=== PATIENT | male | born 1940 | race Caucasian/White ===

== ENCOUNTER 2017-01-07 13:42 | Emergency (ER) | payer MEDICARE, OTHER ==
--- NOTE | 2017-01-07 14:33 | EDM.PDOC ---
ED HPI GI/ABDOMINAL - General Chief Complaint: Abdominal Pain Stated Complaint: Lower abdominal pain Time Seen by Provider: 01/07/17 14:15 Source of Information: Reports: Patient, RN notes reviewed History Limitations: Reports: No limitations - History of Present Illness INITIAL COMMENTS - FREE TEXT/NARRATIVE: 76 year old male presents to the ED with two day history of lower abdominal pain. The pain is described as an intermittent cramping that worsens with laughing. He reports mild distention. He denies fever, chills, sweats, nausea, vomiting, diarrhea, constipation, bloody stools, black tarry stools. Last BM was two days ago. He had a colonoscopy in October and was told he has diverticuli. He also has a history of abdominal aortic aneurysm which is closely monitored and has remained stable. He reports frequency with urination and says he sometimes feels as though he doesn't fully empty his bladder. No burning with urination or difficulty starting stream. - Related Data Allergies/ADRs: Allergies Allergy/AdvReac Type Severity Reaction Status Date / Time No Known Allergies Allergy Verified 01/07/17 14:00 Home Meds: Home Meds Albuterol [Ventolin HFA] 2 puff INH QID 06/05/15 [History] Clopidogrel [Plavix] 75 mg PO DAILY 06/05/15 [History] Losartan [Cozaar] 100 mg PO DAILY 06/05/15 [History] Pravastatin [Pravachol] 20 mg PO DAILY 06/05/15 [History] Levofloxacin [Levaquin] 750 mg PO DAILY #7 tablet 01/07/17 [Rx] metroNIDAZOLE [Flagyl] 500 mg PO Q8H #21 tablet 01/07/17 [Rx] Past Medical History HEENT History: Reports: Cataract Cardiovascular History: Reports: CAD, High cholesterol, Hypertension, Stents Respiratory History: Reports: COPD Other Respiratory History: Uses inhaler, unknown reason, said per MD, give cammy more energy Gastrointestinal History: Reports: GERD - Past Surgical History GI Surgical History: Reports: Colonoscopy, Hernia repair/other Social & Family History - Tobacco Use Smoking Status *Q: Current Every Day Smoker Years of Tobacco use: 50 Packs/Tins Daily: 1 Used Tobacco, but Quit: No - Caffeine Use Caffeine Use: Reports: Coffee - Alcohol Use Days Per Week of Alcohol Use: 7 Number of Drinks Per Day: 2 Total Drinks Per Week: 14 - Recreational Drug Use Recreational Drug Use: No ED ROS GENERAL - Review of Systems Review Of Systems: See Below Constitutional: Reports: no symptoms. Denies: fever, chills, diaphoresis, decreased appetite Respiratory: Reports: No Symptoms. Denies: Shortness of Breath Cardiovascular: Reports: No symptoms. Denies: Chest pain GI/Abdominal: Reports: Abdominal pain, Distension. Denies: Black stool, Constipation, Diarrhea, Decreased appetite, Nausea, Vomiting : Reports: frequency. Denies: dysuria, flank pain ED EXAM, GI/ABD - Physical Exam Exam: See Below Exam Limited By: No limitations General Appearance: alert, WD/WN, no apparent distress Respiratory/Chest: no respiratory distress, lungs clear, normal breath sounds, no accessory muscle use, chest non-tender Cardiovascular: normal peripheral pulses, regular rate, rhythm, no murmur GI/Abdominal: normal bowel sounds, no organomegaly, no abnormal bruit, tenderness (mild tenderness with palpation to lower abdomen, no peritoneal inflammation signs. ), distention, mass (palpated to left lower quadrant ). No : guarding, rebound, rigidity Neurological: alert, oriented, normal cognition Skin Exam: Warm, Dry, Intact Course - Vital Signs Last Recorded V/S: Last Vital Signs Temp 97.9 F 01/07/17 14:00 Pulse 88 01/07/17 18:10 Resp 18 01/07/17 18:10 BP 174/84 H 01/07/17 18:10 Pulse Ox 96 01/07/17 18:10 - Orders/Labs/Meds Labs: Laboratory Tests 01/07/17 01/07/17 01/07/17 Range/Units 14:10 14:10 15:35 WBC 12.11 H (4.23-9.07) K/mm3 RBC 4.47 L (4.63-6.08) M/mm3 Hgb 14.9 (13.7-17.5) gm/L Hct 44.4 (40.1-51.0) % MCV 99.3 H (79.0-92.2) fl MCH 33.3 H (25.7-32.2) pg MCHC 33.6 (32.2-35.5) g/dl RDW Std Deviation 49.2 H (35.1-43.9) fL Plt Count 248 (163-337) K/mm3 MPV 9.5 (9.4-12.3) fl Neutrophils % (Manual) 80 H (40-60) % Band Neutrophils % 0 (0-10) % Lymphocytes % (Manual) 13 L (20-40) % Atypical Lymphs % 0 % Monocytes % (Manual) 6 (2-10) % Eosinophils % (Manual) 1 (0.8-7.0) % Basophils % (Manual) 0 L (0.2-1.2) Platelet Estimate Adequate Poikilocytosis 1+ slight Anisocytosis 1+ slight Macrocytosis 2+ moderate Ovalocytes 1+ slight RBC Morph Comment Not Reportable Sodium 139 (136-145) mEq/L Potassium 3.4 L (3.5-5.1) mEq/L Chloride 102 (98-107) mEq/L Carbon Dioxide 29 (21-32) mEq/L Anion Gap 11.4 (5-15) BUN 15 (7-18) mg/dL Creatinine 1.3 (0.7-1.3) mg/dL Est Cr Clr Drug Dosing 46.77 mL/min Estimated GFR (MDRD) 54 (>60) mL/min BUN/Creatinine Ratio 11.5 L (14-18) Glucose 134 H (83-115) mg/dL Calcium 8.8 (8.5-10.1) mg/dL Total Bilirubin 0.8 (0.2-1.0) mg/dL AST 11 L (15-37) U/L ALT 13 L (16-63) U/L Alkaline Phosphatase 78 (46-116) U/L Total Protein 7.2 (6.4-8.2) g/dl Albumin 3.5 (3.4-5.0) g/dl Globulin 3.7 gm/dL Albumin/Globulin Ratio 1.0 (1-2) Lipase 115 (73-393) U/L Urine Color Yellow (Yellow) Urine Appearance Clear (Clear) Urine pH 6.0 (5.0-8.0) Ur Specific [place] 1.025 (1.005-1.030) Urine Protein 1+ H (Negative) Urine Glucose (UA) Negative (Negative) Urine Ketones Trace H (Negative) Urine Occult Blood Negative (Negative) Urine Nitrite Negative (Negative) Urine Bilirubin 1+ H (Negative) Urine Urobilinogen 1.0 (0.2-1.0) Ur Leukocyte Esterase Negative (Negative) Urine RBC 0-5 (0-5) /hpf Urine WBC 5-10 H (0-5) /hpf Ur Epithelial Cells 0-5 (0-5) /hpf Urine Bacteria Few (FEW) /hpf Urine Mucus Moderate H (FEW) /hpf Meds: Medications Discontinued Medications Generic Name Dose Route Start Last Admin Trade Name Freq PRN Reason Stop Dose Admin Diatrizoate Meglum/Diatrizoate Sod 90 ml 01/07/17 16:28 01/07/17 16:48 Gastrografin 37% PO 01/07/17 16:29 90 ml ONETIME ONE Administration Iopamidol 100 ml 01/07/17 16:28 01/07/17 16:48 Isovue-370 (76%) IVPUSH 01/07/17 16:29 100 ml ONETIME ONE Administration Levofloxacin 750 mg 01/07/17 17:33 01/07/17 17:51 Levaquin PO 01/07/17 17:34 750 mg ONETIME ONE Administration Metronidazole 500 mg 01/07/17 17:33 01/07/17 17:51 Flagyl PO 01/07/17 17:34 500 mg ONETIME ONE Administration Sodium Chloride 10 ml 01/07/17 14:32 01/07/17 16:48 Saline Flush FLUSH 10 ml ASDIRECTED PRN Administration Keep Vein Open - Re-Assessments/Exams Free Text/Narrative Re-Assessment/Exam: CBC reveals mildly elevated WBC with no bands. CMP is normal. UA is negative for infection. Post-void residual was performed with bladder scan which revealed < 30ml in bladder after voiding. CT of abdomen/pelvis without contrast read by Dr. Adkins, impression: 1. Mild aneurysmal dilatation of the distal aorta measuring 3.2cm comparing to lumbar spine CT exam on 10/18/11 which measured 3.1cm. 2. Mild inflammatory change within the sigmoid colon which is felt compatible with diverticulosis. (findings most likely due to mild diverticulitis) 3. Mild atrophy of the lower left kidney 4. Other incidental findings. Patient and family were notified of diagnostic findings. Educated on diagnosis of diverticulitis, treatment plan, medications, and return precautions. Departure - Departure Time of Disposition: 17:33 Disposition: Home, Self-Care 01 Condition: good Clinical Impression: Diverticulitis Qualifiers: Diverticulitis site: large intestine Diverticulitis bleeding: without bleeding Diverticulitis complication: without perforation or abscess Qualified Code(s): K57.32 - Diverticulitis of large intestine without perforation or abscess without bleeding Prescriptions: Levofloxacin [Levaquin] 750 mg PO DAILY #7 tablet metroNIDAZOLE [Flagyl] 500 mg PO Q8H #21 tablet Instructions: Diverticulitis, [id number] Referrals: Brennon Bazzi MD [Primary Care Provider] - Forms: ED Department Discharge Additional Instructions: Drink plenty of fluids Flagyl 500mg every 8 hours. You were given first dose in the ER. Take for 7 days Levaquin 750mg once a day for 7 days, first dose given in the ER Return to ER with fever or worsening of symptoms Follow-up with Dr. Bazzi this week Percocet 1 tab every 4-6 hours as needed for pain No driving for at least 6-8 hours after taking Percocet.
[2017-01-07] MEDS: Sodium Chloride 0.9% 10 ML Syringe FLUSH PRN ×2 (15:40→16:48)
[2017-01-07] MEDS ORDERED: Iopamidol 755 Mg/ML 100 ML Bottle IVPUSH ONE (16:28)
[2017-01-07] MEDS ORDERED: Diatrizoate Meglumine/Diatrizoate Sodium 37% 120 ML Bottle PO ONE (16:28)
--- NOTE | 2017-01-07 17:18 | CT ---
CT abdomen and pelvis Technique: Multiple axial sections were obtained from above the dome of the diaphragm inferiorly through the pubic symphysis. Intravenous and oral contrast was utilized. Delayed images were also obtained through the bladder. Comparison: No previous abdominal CT is available. Lumbar spine study of 10/18/11 is available. Findings: Visualized lung bases shows nothing acute. Liver and spleen appear within normal limits. Gallbladder shows no calcified gallstones. Adrenal glands show no nodule. Several small lymph nodes are seen next to the adrenal gland which are felt to be within normal limits. Cortical thinning is seen within the lower left kidney. Kidneys are otherwise unremarkable. Pancreas appears within normal limits. Aorta shows aneurysmal dilatation distally measuring about 3.2 cm and previously measuring about 3.[address] cm on lumbar spine CT. Inflammatory change is seen around a portion of the sigmoid colon with mild diverticulosis being seen. Findings most likely due to mild diverticulitis. No pelvic abscess seen at this time. No additional pelvic abnormality is seen. Delayed images shows contrast within the distal ureters and within the bladder. Bone window settings were reviewed which shows scattered degenerative change within the spine. Impression: 1. Mild aneurysmal dilatation of the distal aorta measuring 3.2 cm comparing to lumbar spine CT exam of 10/18/11 which measured 3.1 cm. 2. Mild inflammatory change within the sigmoid colon which is felt compatible with mild diverticulosis. 3. Mild atrophy of the lower left kidney. 4. Other incidental findings as noted above. Diagnostic code #3
[2017-01-07] MEDS ORDERED: metroNIDAZOLE 500 MG Tab PO ONE (17:33)
[2017-01-07] MEDS ORDERED: Levofloxacin 750 MG Tab PO ONE (17:33)
[2017-01-07 18:14] VITALS: BP 174/84
== END 2017-01-07 18:10 | disposition home or self-care (01) ==
LOC: JD.ED 13:42
DX: K57.32 Diverticulitis of large intestine without perforation or abscess without bleeding (principal); I25.10 Atherosclerotic heart disease of native coronary artery without angina pectoris; I10 Essential (primary) hypertension; E78.00 Pure hypercholesterolemia, unspecified; Z95.5 Presence of coronary angioplasty implant and graft; K21.9 Gastro-esophageal reflux disease without esophagitis; F17.200 Nicotine dependence, unspecified, uncomplicated
CPT/HCPCS: 36415; 74177; 80053; 81001; 83690; 85025; 99284; A9270; J7050; Q9963; Q9967; 51798

== ENCOUNTER 2018-11-09 13:20 | Emergency (ER) | payer MEDICARE, OTHER ==
[2018-11-09 13:30] VITALS: BP 164/72
--- NOTE | 2018-11-09 13:51 | EDM.PDOC ---
ED HPI GENERAL MEDICAL PROBLEM - General Chief Complaint: Eye Problems Stated Complaint: RECENT VASCULAR SURGERY/LOSS OF VISION IN L EYE Time Seen by Provider: 11/09/18 13:33 Source of Information: Reports: Patient History Limitations: Reports: No Limitations - History of Present Illness INITIAL COMMENTS - FREE TEXT/NARRATIVE: Patient is a 78-year-old male presents ED complaining of left eye vision loss for approximately 30 seconds. Patient states this past he had a right- sided carotid endarterectomy and had no complications. He was discharged the following day and has been doing well since. Today while getting ready to take a nap states he saw stars and then his vision went away for approximately 30 seconds. Came back abruptly with no concerns. 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 His left carotid is between 45 and 50%. - Related Data Allergies Allergy/AdvReac Type Severity Reaction Status Date / Time No Known Allergies Allergy Verified 11/09/18 13:30 Home Meds: Home Meds Albuterol [Ventolin HFA] 2 puff INH QID 06/05/15 [History] Clopidogrel [Plavix] 75 mg PO DAILY 06/05/15 [History] Losartan [Cozaar] 100 mg PO DAILY 06/05/15 [History] Pravastatin [Pravachol] 20 mg PO DAILY 06/05/15 [History] Pantoprazole Sodium [Protonix] 40 mg PO DAILY 06/13/18 [History] Sucralfate 1 tab PO DAILY 11/09/18 [History] Past Medical History HEENT History: Reports: Cataract Cardiovascular History: Reports: Aneurysm, CAD, High Cholesterol, Hypertension, Stents Respiratory History: Reports: COPD Other Respiratory History: Uses inhaler, unknown reason, said per MD, give cammy more energy Gastrointestinal History: Reports: GERD - Past Surgical History Cardiovascular Surgical History: Reports: Other (See Below) Other Cardiovascular Surgeries/Procedures: carotid artery graft GI Surgical History: Reports: Colonoscopy, Hernia Repair/Other Social & Family History - Tobacco Use Smoking Status *Q: Current Every Day Smoker Years of Tobacco use: 60 Packs/Tins Daily: 0.5 - Caffeine Use Caffeine Use: Reports: Coffee - Recreational Drug Use Recreational Drug Use: No ED ROS GENERAL - Review of Systems Review Of Systems: ROS reveals no pertinent complaints other than HPI. ED EXAM GENERAL W FULL EYE - Physical Exam Exam: See Below Exam Limited By: No Limitations General Appearance: Alert, WD/WN, No Apparent Distress Eye Exam: Bilateral Eye: EOMI, Normal Inspection, Nystagmus (none ), PERRL, Vision Changes (none currently) Visual Acuity (R) 20/: 25 Visual Acuity (L) 20/: 20 With Correction: Yes Eyelids: Bilateral: Normal Appearance Conjunctiva & Sclera: Bilateral: Normal Appearance Extraocular Movements: Bilateral: Intact Pupillary Size: Bilateral: 4 mm Pupillary Reaction: Bilateral: Brisk Ears: Hearing Grossly Normal Nose: Normal Inspection Throat/Mouth: Normal Voice, No Airway Compromise Head: Atraumatic, Normocephalic Neck: Normal Inspection, Supple Respiratory/Chest: No Respiratory Distress, Lungs Clear, Normal Breath Sounds, No Accessory Muscle Use Cardiovascular: Normal Peripheral Pulses, Regular Rate, Rhythm, No Murmur ( obvious) Back Exam: Normal Inspection Extremities: Normal Inspection, Normal Range of Motion, Non-Tender Neurological: Alert, Oriented, CN II-XII Intact, Normal Cognition, No Motor/ Sensory Deficits, Other (No facial droop, no slurred speech, no tongue deviation. No pronator drift along with any weakness discrepancy is to the upper and lower extremities. Finger to nose and rapid alternating movements are intact.) Psychiatric: Normal Affect, Normal Mood Skin Exam: Warm, Dry, Intact, Normal Color Course - Vital Signs Last Recorded V/S: Last Vital Signs Temp 97.9 F 11/09/18 13:27 Pulse 92 11/09/18 13:27 Resp 16 11/09/18 13:27 BP 164/72 H 11/09/18 13:27 Pulse Ox 98 11/09/18 13:27 - Re-Assessments/Exams Free Text/Narrative Re-Assessment/Exam: [address] Basilio. He is not concerned with recent history. Suggested starting patient on plavix this evening. Return to the E.D. if he should have any new or worsening symptoms. CT of the head impression: Atrophy with greater central component. Other senescent change. Findings are similar to previous exam. No acute intracranial abnormalities appreciated. Patients vital signs have been stable. Last BP 147/72. He has had no further vision changes and or focal neurologic deficits. I have discussed the plan by Dr. Basilio to the patient. Return precautions discussed with the patient. Patient had no further questions or concerns. Discharge instructions as documented. Departure - Departure Time of Disposition: 14:53 Disposition: Home, Self-Care 01 Condition: Good Clinical Impression: Episode of visual loss of left eye - Discharge Information Instructions: Visual Disturbances Referrals: Brennon Bazzi MD [Primary Care Provider] - Forms: ED Department Discharge Additional Instructions: As directed by Dr. Basilio. Start taking the Plavix as directed this evening. Please follow up with PCP this coming week as needed. If you should experience any new focal neurological deficits or vision loss please return back to the ED for further examination. Follow-up with Dr. John as scheduled.
--- NOTE | 2018-11-09 14:33 | CT ---
Head CT Technique: Multiple axial sections through the brain were obtained. Intravenous contrast was not utilized. Comparison: Prior head CT study of 08/27/15. Findings: Ventricles are dilated. Sulci over the convexities are prominent. These findings are similar to previous exam. Old lacunar infarcts are noted within the basal ganglia. Slight diminished density is noted within the periventricular and subcortical white matter compatible with small vessel ischemic demyelination change. No other abnormal parenchymal densities are seen. No evidence of intracranial hemorrhage. No midline shift or mass effect is seen. Bone window setting shows no acute calvarial abnormality. Visualized sinuses are clear. Impression: 1. Atrophy with greater central component. Other senescent change. Findings are similar to previous exam. 2. No acute intracranial abnormality is appreciated. Diagnostic code #2
== END 2018-11-09 15:00 | disposition home or self-care (01) ==
LOC: JD.ED 13:20
DX: H54.62 Unqualified visual loss, left eye, normal vision right eye (principal); F17.210 Nicotine dependence, cigarettes, uncomplicated; I10 Essential (primary) hypertension; E78.00 Pure hypercholesterolemia, unspecified; J44.9 Chronic obstructive pulmonary disease, unspecified; K21.9 Gastro-esophageal reflux disease without esophagitis; Z79.899 Other long term (current) drug therapy
CPT/HCPCS: 70450; 70450-26; 99282; 99284-25

== ENCOUNTER 2019-02-26 09:38 | Emergency (ER) | payer MEDICARE, OTHER ==
--- NOTE | 2019-02-26 09:53 | EDM.PDOC ---
ED HPI GENERAL MEDICAL PROBLEM - General Chief Complaint: Neuro Symptoms/Deficits Stated Complaint: POSSIBLE STROKE Time Seen by Provider: 02/26/19 09:44 Source of Information: Reports: Patient, Family (eife) History Limitations: Reports: No Limitations - History of Present Illness INITIAL COMMENTS - FREE TEXT/NARRATIVE: 78-year-old male presents to the ED with acute weakness in his right lower extremity. He states that he woke around 0400 hrs. this morning and recognize that his right leg was not right. He states with felt funny and weak. He did not try to get out of bed however until this morning. When he tried to get up he had to have his help him up out of bed. He does identify that his right leg was very weak and he was unable to hardly lift it off the floor due to heaviness. He is walking with a very shuffling gait. He did not fall this morning. His held onto him. Of importance is that he did have a lumbar puncture done yesterday in [place]. The reason for this is unclear. As had previous strokes having had right carotid endarterectomy and a left carotid stent placed about 3 months ago. He is therefore on Plavix 75 mg daily which was held for 1 week prior to the LP being done yesterday. He states he is able to void normally. He had no weakness in his upper extremity or face and no change in his speech. Therefore the possibility of an epidural hematoma exists Onset: Today Onset Date: 02/26/19 Onset Time: 04:00 (Appreciated weakness in his right leg or abnormality in his right leg about 0400 hrs. this morning.) Duration: Hour(s): Location: Reports: Lower Extremity, Right (Weakness and inability to walk efficiently without help.) Quality: Reports: Other (No pain in the right lower extremity) Severity: Severe Improves with: Reports: None Worsens with: Reports: None Context: Reports: Other (Coincidental lumbar puncture done yesterday in [place]. Plavix was held for 1 week prior to the procedure). Denies: Activity , Exercise, Lifting, Sick Contact, Trauma Associated Symptoms: Reports: Cough, Malaise, Shortness of Breath, Weakness ( Right leg). Denies: Confusion, Chest Pain, cough w sputum (Chronically), Diaphoresis, Fever/Chills, Headaches, Loss of Appetite, Nausea/Vomiting, Rash, Seizure, Syncope (Chronic) Treatments SET BUILDER: Reports: Other (see below) (Did not take any of his normal meds this morning) - Related Data Allergies Allergy/AdvReac Type Severity Reaction Status Date / Time No Known Allergies Allergy Verified 02/26/19 10:40 Home Meds: Home Meds Albuterol [Ventolin HFA] 2 puff INH QID 06/05/15 [History] Clopidogrel [Plavix] 75 mg PO DAILY 06/05/15 [History] Losartan [Cozaar] 100 mg PO DAILY 06/05/15 [History] Pravastatin [Pravachol] 20 mg PO DAILY 06/05/15 [History] Pantoprazole Sodium [Protonix] 40 mg PO DAILY 06/13/18 [History] Sucralfate 1 tab PO DAILY 11/09/18 [History] Past Medical History HEENT History: Reports: Cataract Cardiovascular History: Reports: Aneurysm, CAD, High Cholesterol, Hypertension, Stents Respiratory History: Reports: COPD Other Respiratory History: Uses inhaler, unknown reason, said per MD, give cammy more energy Gastrointestinal History: Reports: GERD - Past Surgical History Cardiovascular Surgical History: Reports: Carotid Endarterectomy (Right carotid endarterectomy approximately 3 and half months ago.), Carotid Stents (Left carotid stent approximately 3 months ago), Vascular Surgery (Apparently has stents in both femoral arteries for peripheral vascular disease.), Other (See Below) Other Cardiovascular Surgeries/Procedures: carotid artery graft GI Surgical History: Reports: Colonoscopy, Hernia Repair/Other Social & Family History - Tobacco Use Smoking Status *Q: Current Every Day Smoker Tobacco Use Within Last Twelve Months: Cigarettes (1 pack per day) - Caffeine Use Caffeine Use: Reports: Coffee - Living Situation & Occupation Living situation: Reports: Occupation: Retired ED ROS GENERAL - Review of Systems Review Of Systems: See Below Constitutional: Reports: Weakness, Decreased Appetite. Denies: Fever, Chills, Malaise, Fatigue (Right lower extremity), Weight Loss HEENT: Denies: Glasses Respiratory: Reports: Shortness of Breath. Denies: Wheezing, Pleuritic Chest Pain, Cough Cardiovascular: Reports: Blood Pressure Problem, Dyspnea on Exertion ( Chronically). Denies: Chest Pain, Claudication, Lightheadedness, Orthopnea, Syncope Endocrine: Reports: No Symptoms GI/Abdominal: Reports: Constipation : Reports: Frequency, Other (Nocturia once or twice. ) Skin: Reports: Bruising (Bruises easily since he is on Plavix.) Neurological: Reports: Difficulty Walking (Right lower extremity), Weakness, Gait Disturbance. Denies: Confusion, Dizziness, Headache, Numbness, Syncope, Tingling, Tremors, Trouble Speaking ( unable to walk on his own this morning.), Change in Speech Psychiatric: Reports: No Symptoms Hematologic/Lymphatic: Reports: No Symptoms Immunologic: Reports: No Symptoms ED EXAM, NEURO - Physical Exam Exam: See Below Exam Limited By: No Limitations General Appearance: No Apparent Distress Eye Exam: Bilateral Eye: Normal Inspection, PERRL Throat/Mouth: Normal Inspection, Normal Lips, Normal Teeth, Normal Oropharynx, Other (Uvula is in the midline.) Head Exam: Atraumatic, Normocephalic. No: Facial Swelling, Facial Tenderness Neck: Other (He said previous right carotid endarterectomy with well-healed scar. Set a stent placed in his left carotid artery. Apparently this was done 3 months ago). No: Carotid Bruit, Lymphadenopathy (L), Lymphadenopathy (R) Respiratory/Chest: Decreased Breath Sounds (Decreased air entry to the lower 20 % of lung gabriel bilaterally with occasional expiratory wheeze.) Cardiovascular: Regular Rate, Rhythm, No Edema, No Gallop, No Murmur, No Rub, Other (Pulses to right foot are palpable and graded as 2 out of 4.). No: Normal Peripheral Pulses GI/Abdominal: Normal Bowel Sounds, Soft, Non-Tender, No Organomegaly, No Mass, Pelvis Stable, Rebound (Male) Exam: Cremasteric Reflex (Intact) Rectal (Males) Exam: Normal Rectal Tone Neurological: Alert, Normal Mood/Affect, Normal Dorsiflexion, CN II-XII Intact, Normal Plantar Flexion, Normal Reflexes, Oriented x 3, Difficulty Walking ( Shuffling gait due to right leg weakness.). No: Normal Gait (Shuffling gait due to his severe weakness right lower extremity.) DTR: 1+: Achilles (R), Achilles (L), 2+: Bicep (R), Bicep (L), Patella (R), Patella (L) Back Exam: Normal Inspection, Full Range of Motion. No: CVA Tenderness (L), CVA Tenderness (R) Extremities: Normal Inspection, Other (He can lift the right leg off the gurney and hold it for 5 seconds) Psychiatric: Normal Affect ( against gravity on his own volition.), Normal Mood Skin Exam: Warm, Dry, Intact, Normal Color, No Rash EKG INTERPRETATION EKG Date: 02/26/19 Time: 10:01 Rhythm: NSR Rate (Beats/Min): 68 Burton: Normal P-Wave: Present (Borderline short HI interval.) QRS: Other (Early R-wave transition consider right ventricular hypertrophy work versus septal hypertrophy pattern. Also evidence of left ventricular hypertrophy.) ST-T: Normal QT: Normal EKG Interpretation Comments: Abnormal ECG Course - Vital Signs Last Recorded V/S: Last Vital Signs Temp 36.2 C 02/26/19 09:38 Pulse 73 02/26/19 09:38 Resp 16 02/26/19 09:38 BP 146/84 H 02/26/19 09:38 Pulse Ox 95 02/26/19 09:38 - Orders/Labs/Meds Orders: Active Orders 24 hr Category Date Time Status EKG Documentation Completion [RC] STAT Care 02/26/19 09:50 Active PRO B-TYPE NATRIUR PEPT,BNPPRO [CHEM] Stat Lab 02/26/19 09:45 Received Labs: Laboratory Tests 02/26/19 02/26/19 02/26/19 Range/Units 09:45 09:45 09:45 WBC 6.96 (4.23-9.07) K/mm3 RBC 4.49 L (4.63-6.08) M/mm3 Hgb 13.5 L (13.7-17.5) gm/L Hct 42.3 (40.1-51.0) % MCV 94.2 H D (79.0-92.2) fl MCH 30.1 (25.7-32.2) pg MCHC 31.9 L (32.2-35.5) g/dl RDW Std Deviation 47.5 H (35.1-43.9) fL Plt Count 278 (163-337) K/mm3 MPV 8.9 L (9.4-12.3) fl Neutrophils % (Manual) 69 H (40-60) % Band Neutrophils % 0 (0-10) % Lymphocytes % (Manual) 20 (20-40) % Atypical Lymphs % 0 % Monocytes % (Manual) 9 (2-10) % Eosinophils % (Manual) 2 (0.8-7.0) % Basophils % (Manual) 0 L (0.2-1.2) Platelet Estimate Adequate RBC Morph Comment Normal PT 11.1 (9.5-12.1) SECONDS INR 1.02 APTT 27 (24-31) SECONDS Sodium 139 (136-145) mEq/L Potassium 4.1 (3.5-5.1) mEq/L Chloride 104 (98-107) mEq/L Carbon Dioxide 24 (21-32) mEq/L Anion Gap 15.1 H (5-15) BUN 19 H (7-18) mg/dL Creatinine 1.3 (0.7-1.3) mg/dL Est Cr Clr Drug Dosing 45.31 mL/min Estimated GFR (MDRD) 53 (>60) mL/min BUN/Creatinine Ratio 14.6 (14-18) Glucose 104 (83-115) mg/dL Calcium 9.0 (8.5-10.1) mg/dL Magnesium 2.0 (1.8-2.4) mg/dl Total Bilirubin 0.4 (0.2-1.0) mg/dL AST 15 (15-37) U/L ALT 16 (16-63) U/L Alkaline Phosphatase 73 (46-116) U/L Total Protein 7.1 (6.4-8.2) g/dl Albumin 3.4 (3.4-5.0) g/dl Globulin 3.7 gm/dL Albumin/Globulin Ratio 0.9 L (1-2) Meds: Medications Discontinued Medications Generic Name Dose Route Start Last Admin Trade Name Freq PRN Reason Stop Dose Admin Aspirin 81 mg 02/26/19 10:34 02/26/19 10:49 Aspirin PO 02/26/19 10:35 81 mg ONETIME ONE Administration - Radiology Interpretation Free Text/Narrative:: 70-year-old male attends the ED after wakening this morning and finding that his right leg was not working right. Has to walk with a shuffling gait and requires his to assist his gait which is revealing very weak right lower extremity. He is unable to lift his foot off the floor essentially and has to shuffle. He has no pain in his right lower extremity. Patient has a history of TIAs. He had a right carotid endarterectomy performed by Dr. John about 3 and half months ago. 2 weeks later he had a stent placed in his left carotid artery. He is being worked up for benign intracranial hypertension and was taken off his Plavix over the last week and had lumbar puncture done yesterday with removal of some cerebral spinal fluid with a marked improvement in his gait. For there was some consideration being given to providing a ventriculoperitoneal shunt. Unfortunately the patient awoke around 0400 hrs. this morning identifying that his right leg did not feel right. He did not try and get out of bed until this morning when he identified that the right leg was very weak and he was unable to walk on his own volition. He required his 's help to get up from bed. Medically he has grade 3 out of 5 motor power and tone in the right extremity. When he is lying he is able to hold for 5 seconds above gravity on his own. Only the right leg seems to be affected. Plan he will have CT of his head carried out and CT of his lumbar spine to rule out a epidural hematoma although clinically this does not appear to be evident as he has good sphincter tone and normal cremasteric reflexes. He has good pulses to his right foot as well. - Re-Assessments/Exams Free Text/Narrative Re-Assessment/Exam: 02/26/19 10:41 spoke with --neurolgist at [facility] in [facility] and discussed the patient's findings. He is relatively contraindicated for him to receive thrombolytics due to recent lumbar puncture and also he is outside the 3-1/2-4 window benefit of thrombolytics. He recommends that we start the patient on baby aspirin 81 mg at this time without resumption of Plavix. I then spoke with --hospitalist who has accepted care of the patient. Patient be transferred to facility per ground ambulance. 02/26/19 10:56 Labs reveal a normal white count at 6.96. Differential shows 69% neutrophils no bands cells. Hemoglobin is 13.5 with hematocrit of 42.3. Bili count is 278,000. PT is 11.1 with an INR of 1.02. PTT is 27. Sodium 139 with a potassium of 4.1. Chloride is 104 with a bicarbonate 24. And a gap is 15.1. BUN is 19. Creatinine is 1.3. Estimated GFR is 53. Glucose 104. Calcium 9.0. Magnesium is 2.0. Liver function is normal. Departure - Departure Time of Disposition: 10:56 Disposition: DC/Tfer to Acute Hospital 02 Condition: Fair Clinical Impression: Cerebrovascular accident (CVA) determined by clinical assessment, Benign intracranial hypertension Cerebrovascular accident (CVA) Qualifiers: CVA mechanism: thrombosis Precerebral and cerebral artery: middle cerebral artery Laterality of affected vessel: left Qualified Code(s): I63.312 - Cerebral infarction due to thrombosis of left middle cerebral artery - Discharge Information *PRESCRIPTION DRUG MONITORING PROGRAM REVIEWED*: Not Applicable *COPY OF PRESCRIPTION DRUG MONITORING REPORT IN PATIENT IVV: Not Applicable Referrals: Brennon Bazzi MD [Primary Care Provider] - Forms: ED Department Discharge Additional Instructions: 78-year-old male presents the ED with acute right lower extremity paresis. He states he awoke around 0400 hrs. from sleep and appreciated abnormality in his right leg which she has difficulty describing. It didn't hurt but he felt it wasn't quite right. He did not get up from bed then. When he tried to get out of bed this morning he could not without the aid of his . Etiology identified when he stood up that he could not walk without the use of his due to right leg weakness. Examination the department shows no dysarthria or facial weakness. He has no right upper extremity weakness either. Of note patient has a left carotid artery stent in place for about 3 months. He's been on Plavix up until a week ago when it was curtailed to perform lumbar puncture yesterday in [place]. He has not yet been restarted. Do not take any of his normal medicines this morning. CT of the brain was carried out and reveals dilated lateral ventricles and CT suggestion of a benign intracranial hypertension. Is diffuse small vessel ischemic changes noted in both basal ganglia. No intracranial hypertension appreciated. Because of his recent lumbar puncture CT of his lumbar spine was done as well and no epidural hematoma identified. 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 Family is requesting to go back to [place]. I did speak with the neurologist rn care transition any suggest starting him back on aspirin 81 mg at this time. Patient is to be admitted under the hospitalist care doctor Caleb. He'll be transferred to [facility] per ground ambulance. CT of the brain and the lumbar spine have been sent by PACs. - My Orders Last 24 Hours: My Active Orders 02/26/19 09:45 PRO B-TYPE NATRIUR PEPT,BNPPRO [CHEM] Stat 02/26/19 09:50 EKG Documentation Completion [RC] STAT - Assessment/Plan Last 24 Hours: My Active Orders 02/26/19 09:45 PRO B-TYPE NATRIUR PEPT,BNPPRO [CHEM] Stat 02/26/19 09:50 EKG Documentation Completion [RC] STAT
[2019-02-26] MEDS ORDERED: Aspirin 81 MG Tab.Chew PO ONE (10:34)
--- NOTE | 2019-02-26 10:36 | CT ---
Head CT Technique: Multiple axial sections through the brain were obtained. Intravenous contrast was not utilized. Comparison: Prior MRI brain of 01/21/19 and prior noncontrast head CT study of 11/09/18. Findings: Ventricles are dilated out of proportion when compared to the sulci over the convexities. This finding is felt compatible with greater central atrophy and is stable from prior studies. Old lacunar infarcts are noted within the basal ganglia on both sides. Mild diminished density is noted within the periventricular white matter compatible with small vessel ischemic demyelination change. No other abnormal parenchymal densities are seen. No evidence of intracranial hemorrhage. No midline shift or mass effect is seen. Bone window settings were reviewed which show no acute calvarial abnormality. There is mild mucosal thickening seen within the right sphenoid sinus which is felt to be incidental. Impression: 1. Nothing acute is appreciated on noncontrast head CT study. 2. Minimal sinus findings which are believed to be incidental. 3. Stable senescent change. Diagnostic code #2
--- NOTE | 2019-02-26 10:36 | CT ---
CT lumbar spine Technique: Multiple axial sections were obtained from the lower T11 level inferiorly through the L5-S1 disc. Reconstructed sagittal and coronal images were reviewed. Diffuse anterior and lateral osteophytes are seen throughout the spine. Vertebral body heights are maintained. No fracture is seen. Degenerative change is noted within the apophyseal joints throughout the lumbar spine. Minimal circumferential disc bulge is noted at L3-L4 with posterior disc maintaining concave margin. Mild central canal stenosis is seen. Mild bilateral neural foraminal stenosis also noted at L3-L4. L4-L5 level shows mild circumferential disc bulge. Mild bilateral neural foraminal stenosis is seen worse on the left side. Minimal central canal stenosis is noted. Mild bilateral neural foraminal stenosis noted at L5-S1. No central canal stenosis is seen. No evidence of epidural hematoma. Partially visualized distal abdominal aortic aneurysm is seen. AP dimension cannot be measured but transverse measurement is 3.7 cm. Impression: 1. Degenerative change as noted above. No epidural hematoma seen. 2. Abdominal aortic aneurysm is incompletely seen, maximum transverse measurement is 3.7 cm. Diagnostic code #3
[2019-02-26 10:45] VITALS: BP 146/84
== END 2019-02-26 11:18 ==
LOC: JD.ED 09:38
DX: I63.312 Cerebral infarction due to thrombosis of left middle cerebral artery (principal); G93.2 Benign intracranial hypertension; I25.10 Atherosclerotic heart disease of native coronary artery without angina pectoris; E78.00 Pure hypercholesterolemia, unspecified; I10 Essential (primary) hypertension; J44.9 Chronic obstructive pulmonary disease, unspecified; K21.9 Gastro-esophageal reflux disease without esophagitis; F17.210 Nicotine dependence, cigarettes, uncomplicated; Z79.899 Other long term (current) drug therapy; Z95.5 Presence of coronary angioplasty implant and graft; Z79.01 Long term (current) use of anticoagulants; R29.701 NIHSS score 1
CPT/HCPCS: 36415; 70450; 72131; 80053; 82962; 83735; 83880; 85007; 85027; 85610; 85730; 93005; 99285; A9270; 93010

== ENCOUNTER 2019-06-17 07:05 | Day surgery (SDC) | payer MEDICARE, OTHER ==
[~2019-06-17 07:05] MED LIST: Albuterol 0.083% 2.5 MG/3 ML Neb Soln NEB SCH; Lactated Ringers 1,000 ML IV SCH; Lidocaine 1%/Sod Bicarbonate in NS 8.4% 1 ML Syringe IDERM PRN; Sodium Chloride 0.9% 10 ML Syringe FLUSH PRN
[2019-06-17] MEDS ORDERED: Propofol 200 MG/20 ML SDV ONE (07:22)
[2019-06-17] MEDS ORDERED: Ketamine 500 mg/10 ML MDV ONE (07:22)
[2019-06-17] MEDS ORDERED: Lidocaine 1% 4 ML ONE (07:23)
--- NOTE | 2019-06-17 07:27 | PCM.PREANE ---
Preanesthetic Assessment - Procedure Proposed Procedure: EGD/colonoscopy - Anesthesia/Transfusion/Family Hx Anesthesia History: No Prior Anesthesia Family History of Anesthesia Reaction: No Transfusion History: No Prior Transfusion(s) Intubation History: Unknown - Review of Systems General: No Symptoms Pulmonary: No Symptoms Cardiovascular: No Symptoms Gastrointestinal: No Symptoms Neurological: Weakness, Other (cva -2 months ago weakness in legs ) Other: Reports: Easy Bleeding - Physical Assessment NPO Status Date: 06/17/19 NPO Status Time: 21:00 Height: 1.7 m ASA Class: 4 Mental Status: Alert & Oriented x3 Airway Class: Mallampati = 3 Dentition: Reports: Dentures (upper ) Thyro-Mental Finger Breadths: 3 Mouth Opening Finger Breadths: 4 ROM/Head Extension: Full Lungs: Clear to Auscultation, Normal Respiratory Effort Cardiovascular: Regular Rate, Regular Rhythm - Allergies Allergies/Adverse Reactions: Allergies Allergy/AdvReac Type Severity Reaction Status Date / Time No Known Allergies Allergy Verified 06/16/19 17:09 - Blood Blood Available: No - Acknowledgements Anesthesia Type Planned: MAC Pt an Appropriate Candidate for the Planned Anesthesia: Yes Alternatives and Risks of Anesthesia Discussed w Pt/Guardian: Yes Pt/Guardian Understands and Agrees with Anesthesia Plan: Yes PreAnesthesia Questionnaire HEENT History: Reports: Cataract, Impaired Vision, Other (See Below) Other HEENT History: wears glasses, has dentures Cardiovascular History: Reports: Aneurysm, CAD, High Cholesterol, Hypertension, Stents, Other (See Below) Other Cardiovascular History: carotid stenosis, peripheral vascular disease, carotid stent, right carotid endarterectomy Respiratory History: Reports: COPD Other Respiratory History: Uses inhaler, unknown reason, said per MD, give cammy more energy Gastrointestinal History: Reports: Diverticulosis, GERD, Hiatal Hernia Genitourinary History: Reports: None TILE INSPECTOR History: Reports: None Musculoskeletal History: Reports: None Neurological History: Reports: CVA Psychiatric History: Reports: None Endocrine/Metabolic History: Reports: None Hematologic History: Reports: None Immunologic History: Reports: None Oncologic (Cancer) History: Reports: Basal Cell Carcinoma Dermatologic History: Reports: None - Past Surgical History Head Surgeries/Procedures: Reports: None Cardiovascular Surgical History: Reports: Carotid Endarterectomy, Carotid Stents , Vascular Surgery, Other (See Below) Other Cardiovascular Surgeries/Procedures: carotid artery graft Respiratory Surgical History: Reports: None GI Surgical History: Reports: Colonoscopy, EGD, Hernia Repair/Other Female Surgical History: Reports: None Male Surgical History: Reports: None Endocrine Surgical History: Reports: None Neurological Surgical History: Reports: None Musculoskeletal Surgical History: Reports: Other (See Below) Other Musculoskeletal Surgeries/Procedures:: bilateral dupytren's contracture release Oncologic Surgical History: Reports: None Dermatological Surgical History: Reports: None - SUBSTANCE USE Smoking Status *Q: Current Every Day Smoker Recreational Drug Use History: No - HOME MEDS Home Medications: Home Meds Albuterol [Ventolin HFA] 2 puff INH Q6H PRN 06/05/15 [History] Clopidogrel [Plavix] 75 mg PO DAILY 06/05/15 [History] Pantoprazole Sodium [Protonix] 40 mg PO DAILY 06/13/18 [History] Sucralfate 1 tab PO QID 11/09/18 [History] Acetaminophen/oxyCODONE [Percocet 325-5 MG] 1 - 2 tab PO Q4H 06/16/19 [History] Aspirin [Adult Low Dose Aspirin EC] 81 mg PO DAILY 06/16/19 [History] Cyanocobalamin (Vitamin B-12) [Vitamin B-12] 1,000 mcg SQ Q30D 06/16/19 [History ] Losartan Potassium [Cozaar] 50 mg PO DAILY 06/16/19 [History] - CURRENT (IN HOUSE) MEDS Current Meds: Current Medications Albuterol (Proventil Neb Soln) 2.5 mg NEB ONETIME NALDO Stop: 06/17/19 14:00 Lactated Ringer's (Ringers, Lactated) 1,000 mls @ 125 mls/hr IV ASDIRECTED NALDO Stop: 06/17/19 23:00 Lidocaine/Sodium Bicarbonate (Buffered Lidocaine 1% In Ns 8.4%) 0.25 ml IDERM ONETIME PRN PRN Reason: Prior to IV Start Stop: 06/17/19 18:00 Sodium Chloride (Saline Flush) 10 ml FLUSH ASDIRECTED PRN PRN Reason: Keep Vein Open Stop: 06/17/19 18:00
[2019-06-17] MEDS ORDERED: Albuterol 0.021% 0.63 MG/3 ML Neb Soln NEB ONE (07:50)
[2019-06-17] MEDS ORDERED: Phenylephrine/Normal Saline 100 MCG/ML 10 ML Syringe ONE (08:28)
--- NOTE | 2019-06-17 08:56 | PCM.OPNOTE ---
- General Post-Op/Procedure Note Date of Surgery/Procedure: 06/17/19 Operative Procedure(s): EGD/colonoscopy with biopsy Pre Op Diagnosis: anemia. guaiac +stools Post-Op Diagnosis: Same Anesthesia Technique: MAC Primary Surgeon: Jorge Sinha EBL in mLs: 0 Complications: None Condition: Good
--- NOTE | 2019-06-17 08:58 | PCM48HPAN ---
Post Anesthesia Note - EVALUATION WITHIN 48HRS OF ANESTHETIC Vital Signs in Normal Range: Yes Patient Participated in Evaluation: Yes Respiratory Function Stable: Yes Airway Patent: Yes Cardiovascular Function Stable: Yes Hydration Status Stable: Yes Pain Control Satisfactory: Yes Nausea and Vomiting Control Satisfactory: Yes Mental Status Recovered: Yes Vital Signs: Last Vital Signs Temp 36.8 C 06/17/19 07:15 Pulse 77 06/17/19 07:15 Resp 16 06/17/19 07:15 BP 126/64 06/17/19 07:15 Pulse Ox 99 06/17/19 07:59 0853 96/58, 94- 2L, 78, 15, 97.8
[2019-06-17 10:01] VITALS: BP 137/65; PULSE 64
--- NOTE | 2019-06-18 08:25 | OR ---
DATE OF OPERATION: 06/17/2019 SURGEON: Jorge Sinha MD PREOPERATIVE DIAGNOSIS: Guaiac-positive stools. POSTOPERATIVE DIAGNOSIS: Guaiac-positive stools. OPERATION PERFORMED: Colonoscopy to cecum with biopsy of the lesion in the rectum done under IV sedation. FINDINGS: Occasional diverticula in the sigmoid colon. A sessile polyp at 15 cm in the rectum which was about 2 cm and was villous in nature. Biopsy was taken of this. There was no angiodysplasias, large ulcerations or inflammation of the colon. DESCRIPTION OF PROCEDURE: The patient was taken to the operating room having been connected to monitoring equipment and given IV sedation. Upper GI was done and IV sedation continued for colonoscopy. He was placed in left lateral position. Perianal area was inspected, it was normal. Rectal exam showed good sphincter tone. Video Olympus colonoscope was then introduced into the rectum and threaded up without problem to the cecum, where the appendicular orifice was noted along with the ileocecal valve. Prep was excellent. [place] cleansing score grade A, and the scope was slowly withdrawn showing the cecum, ascending colon, transverse colon, descending colon, sigmoid colon, and rectum. At 15 cm, a sessile polyp was noted and this was only biopsied because the patient was high risk for stroke and was not taken off his Plavix. A biopsy was done and the site coagulated that was biopsied and specimen sent to Pathology. The patient tolerated the procedure, sent to recovery room in a stable condition, and will be followed up in the clinic. ANESTHESIA: ESTIMATED BLOOD LOSS: MMODAL /[id number]
--- NOTE | 2019-06-18 08:25 | OR ---
DATE OF OPERATION: 06/17/2019 SURGEON: Jorge Sinha MD PREOPERATIVE DIAGNOSIS: Anemia. POSTOPERATIVE DIAGNOSIS: Anemia. OPERATION PERFORMED: Upper GI endoscopy. FINDINGS: There were no acute disease. The second portion of the duodenum and duodenal bulb were unremarkable. Pyloric channel was normal. The antrum showed loose erythematous streaking. The J-maneuver showed fundus and cardia and body of the stomach. No acute problem. GE junction showed some mild chronic esophagitis. The GE junction located at 40 cm. Did not notice a hiatal hernia. Rest of the esophagus was unremarkable. ANESTHESIA: Procedure was done under IV sedation. DESCRIPTION OF PROCEDURE: The patient was taken to the operating room, placed in the supine position, connected to monitoring equipment and given IV sedation. Bite block was inserted. A video Olympus gastroscope was placed in the posterior oropharynx under direct vision and threaded past the cricopharyngeus down the esophagus into the stomach. The stomach was insufflated, and the scope passed through the pylorus to the second portion of the duodenum. It was slowly withdrawn showing no acute pathology. Antrum was viewed. J-maneuver was performed showing the body, cardia, and fundus of the stomach. The above noted was found. The scope was withdrawn to the GE junction, which did not show any acute pathology other than chronic esophagitis. The rest of the esophagus was unremarkable. The patient tolerated the procedure, IV sedation and continued for colonoscopy. ESTIMATED BLOOD LOSS: MMODAL /[id number]
== END 2019-06-17 10:20 | disposition home or self-care (01) ==
LOC: JD.SDS 07:05
PROVIDERS: ATTEND Surgery
DX: K57.31 Diverticulosis of large intestine without perforation or abscess with bleeding (principal); D12.8 Benign neoplasm of rectum; K20.9 Esophagitis, unspecified; D64.9 Anemia, unspecified; I25.10 Atherosclerotic heart disease of native coronary artery without angina pectoris; I10 Essential (primary) hypertension; I73.9 Peripheral vascular disease, unspecified; I71.9 Aortic aneurysm of unspecified site, without rupture; E78.2 Mixed hyperlipidemia; J44.9 Chronic obstructive pulmonary disease, unspecified; F17.210 Nicotine dependence, cigarettes, uncomplicated; G91.9 Hydrocephalus, unspecified; Z95.5 Presence of coronary angioplasty implant and graft; Z86.010 Personal history of colon polyps; Z86.73 Personal history of transient ischemic attack (TIA), and cerebral infarction without residual deficits; Z79.02 Long term (current) use of antithrombotics/antiplatelets; Z79.82 Long term (current) use of aspirin; Z79.899 Other long term (current) drug therapy
CPT/HCPCS: 43235; 45380; 94640; J2001; J2370; J2704; J7120

== ENCOUNTER 2019-08-10 11:57 | Emergency (ER) | payer MEDICARE, OTHER ==
[2019-08-10] MEDS ORDERED: Ondansetron 4 MG/2 ML SDV IVPUSH ONE (12:25)
[2019-08-10] MEDS ORDERED: Sodium Chloride 0.9% 10 ML Syringe FLUSH PRN ×2 (12:26→13:19)
[2019-08-10] MEDS ORDERED: Sodium Chloride 0.9% 1,000 ML IV SCH (12:30)
--- NOTE | 2019-08-10 12:50 | EDM.PDOC ---
ED HPI GENERAL MEDICAL PROBLEM - General Chief Complaint: Abdominal Pain Stated Complaint: LOWER ABD PAIN Time Seen by Provider: 08/10/19 12:23 Source of Information: Reports: Patient, RN Notes Reviewed History Limitations: Reports: No Limitations - History of Present Illness INITIAL COMMENTS - FREE TEXT/NARRATIVE: Patient is a 79-year-old male who presents to the ED for the evaluation of bilateral lower abdominal pain. Patient notes this is been painful off and on for a while now, but for the last 4-5 days this has been more bothersome and painful. He notes that it is intermittent, and starts with being sharp and stabbing in nature, and told to an ache, then goes away. Patient notes he has been having issues with constipation for the past few weeks as well, he states that his last regular bowel movement was yesterday. He notes that he's been having to strain really hard to make his bowel movements, round. He notes that he does have a history of a abdominal aortic aneurysm, and states this was checked at one of his last visits, and seemed to be stable, but he notes it has not been checked in a while. He was wondering if due to his straining with bowel movements, that he could have hurt this or made the abdominal aortic aneurysm grow further. Patient denies any blood in the stool, any black stools coming any issues with urination, or his prostate, any fevers or chills, nausea or vomiting. He has not taken anything at home for [id number] pain medication. He notes that he did have a recent colonoscopy, and he did have a polyp removed near the proximal colon, and states he was told this was not cancerous or precancerous. He states his primary care provider is Dr. Bazzi. Bilateral Lower Abdomen Pain Score (Numeric/FACES): 7 - Related Data Allergies Allergy/AdvReac Type Severity Reaction Status Date / Time No Known Allergies Allergy Verified 08/10/19 12:11 Home Meds: Home Meds Albuterol [Ventolin HFA] 2 puff INH Q6H PRN 06/05/15 [History] Clopidogrel [Plavix] 75 mg PO DAILY 06/05/15 [History] Pantoprazole Sodium [Protonix] 40 mg PO DAILY 06/13/18 [History] Sucralfate 1 tab PO QID 11/09/18 [History] Losartan Potassium [Cozaar] 50 mg PO DAILY 06/16/19 [History] Amoxicillin/Clavulanate K [Augmentin 500-125 MG] 1 tab PO TID #21 tab 08/10/19 [ Rx] Past Medical History HEENT History: Reports: Cataract, Impaired Vision, Other (See Below) Other HEENT History: wears glasses, has dentures Cardiovascular History: Reports: Aneurysm, CAD, High Cholesterol, Hypertension, Stents, Other (See Below) Other Cardiovascular History: carotid stenosis, peripheral vascular disease, carotid stent, right carotid endarterectomy Respiratory History: Reports: None Other Respiratory History: Uses inhaler, unknown reason, said per MD, give cammy more energy Gastrointestinal History: Reports: Diverticulosis, GERD, Hiatal Hernia Genitourinary History: Reports: None [place] [employer] History: Reports: None Musculoskeletal History: Reports: None Neurological History: Reports: CVA Psychiatric History: Reports: None Endocrine/Metabolic History: Reports: None Hematologic History: Reports: None Immunologic History: Reports: None Oncologic (Cancer) History: Reports: Basal Cell Carcinoma Dermatologic History: Reports: None - Infectious Disease History Infectious Disease History: Reports: None - Past Surgical History Head Surgeries/Procedures: Reports: None Cardiovascular Surgical History: Reports: Carotid Endarterectomy, Carotid Stents , Vascular Surgery, Other (See Below) Other Cardiovascular Surgeries/Procedures: carotid artery graft Respiratory Surgical History: Reports: None GI Surgical History: Reports: Colonoscopy, EGD, Hernia Repair/Other Male Surgical History: Reports: None Endocrine Surgical History: Reports: None Neurological Surgical History: Reports: None Musculoskeletal Surgical History: Reports: Other (See Below) Other Musculoskeletal Surgeries/Procedures:: bilateral dupytren's contracture release Oncologic Surgical History: Reports: None Dermatological Surgical History: Reports: None Social & Family History - Tobacco Use Smoking Status *Q: Current Every Day Smoker Years of Tobacco use: 56 Packs/Tins Daily: 1 - Caffeine Use Caffeine Use: Reports: None - Recreational Drug Use Recreational Drug Use: No - Living Situation & Occupation Living situation: Reports: Occupation: Retired ED ROS GENERAL - Review of Systems Review Of Systems: See Below Constitutional: Denies: Fever, Chills, Decreased Appetite HEENT: Reports: No Symptoms Respiratory: Denies: Shortness of Breath Cardiovascular: Denies: Chest Pain Endocrine: Reports: No Symptoms GI/Abdominal: Reports: Abdominal Pain (bilateral lower abd pain), Constipation, Flatus. Denies: Black Stool, Bloody Stool, Diarrhea, Distension, Nausea, Vomiting : Denies: Dysuria, Frequency, Urgency Musculoskeletal: Reports: No Symptoms Skin: Reports: No Symptoms Neurological: Reports: No Symptoms Psychiatric: Reports: No Symptoms Hematologic/Lymphatic: Reports: No Symptoms Immunologic: Reports: No Symptoms ED EXAM, GI/ABD - Physical Exam Exam: See Below Exam Limited By: No Limitations General Appearance: Alert, WD/WN, No Apparent Distress Eyes: Bilateral: Normal Appearance Throat/Mouth: Normal Inspection, Normal Lips, Normal Teeth, Normal Gums, Normal Oropharynx, Normal Voice, No Airway Compromise Head: Atraumatic, Normocephalic Neck: Normal Inspection Respiratory/Chest: No Respiratory Distress, Lungs Clear, Normal Breath Sounds, No Accessory Muscle Use, Chest Non-Tender Cardiovascular: Normal Peripheral Pulses, Regular Rate, Rhythm, No Murmur GI/Abdominal Exam: Normal Bowel Sounds, Soft, Non-Tender, No Distention, No Mass Extremities: Normal Inspection, Normal Capillary Refill Neurological: Alert, Oriented, Normal Cognition, No Motor/Sensory Deficits Psychiatric: Normal Affect, Normal Mood Skin Exam: Warm, Dry, Intact, Normal Color, No Rash Course - Vital Signs Last Recorded V/S: Last Vital Signs Temp 97.6 F 08/10/19 12:07 Pulse 84 08/10/19 12:07 Resp 16 08/10/19 12:07 BP 157/78 H 08/10/19 12:07 Pulse Ox 100 08/10/19 12:07 - Orders/Labs/Meds Orders: Active Orders 24 hr Category Date Time Status Peripheral IV Care [RC] . DIRECTED Care 08/10/19 12:26 Active Sodium Chloride 0.9% [Normal Saline] 1,000 ml Med 08/10/19 12:30 Active IV ASDIRECTED Sodium Chloride 0.9% [Saline Flush] Med 08/10/19 12:26 Active 10 ml FLUSH ASDIRECTED PRN Sodium Chloride 0.9% [Saline Flush] Med 08/10/19 13:19 Active 10 ml FLUSH ONETIME PRN Peripheral IV Insertion Adult [OM.PC] Stat Oth 08/10/19 12:26 Ordered Medication Orders Sodium Chloride (Normal Saline) 1,000 mls @ 999 mls/hr IV ASDIRECTED [facility] Last Admin: 08/10/19 13:07 Dose: 999 mls/hr Sodium Chloride (Saline Flush) 10 ml FLUSH ASDIRECTED PRN PRN Reason: Keep Vein Open Last Admin: 08/10/19 12:50 Dose: 10 ml Sodium Chloride (Saline Flush) 10 ml FLUSH ONETIME PRN PRN Reason: IV FLUSH Last Admin: 08/10/19 14:18 Dose: 10 ml Labs: Laboratory Tests 08/10/19 08/10/19 08/10/19 Range/Units 12:50 12:50 14:10 WBC 8.94 (4.23-9.07) K/mm3 RBC 4.41 L (4.63-6.08) M/mm3 Hgb 12.7 L (13.7-17.5) gm/dl Hct 39.4 L (40.1-51.0) % MCV 89.3 D (79.0-92.2) fl MCH 28.8 (25.7-32.2) pg MCHC 32.2 (32.2-35.5) g/dl RDW Std Deviation 54.0 H (35.1-43.9) fL Plt Count 370 H D (163-337) K/mm3 MPV 8.4 L (9.4-12.3) fl Neutrophils % (Manual) 82 H (40-60) % Band Neutrophils % 0 (0-10) % Lymphocytes % (Manual) 15 L (20-40) % Atypical Lymphs % 0 % Monocytes % (Manual) 2 (2-10) % Eosinophils % (Manual) 1 (0.8-7.0) % Basophils % (Manual) 0 L (0.2-1.2) Platelet Estimate Adequate Plt Morphology Comment Normal RBC Morph Comment Normal Sodium 140 (136-145) mEq/L Potassium 3.9 (3.5-5.1) mEq/L Chloride 103 (98-107) mEq/L Carbon Dioxide 27 (21-32) mEq/L Anion Gap 13.9 (5-15) BUN 16 (7-18) mg/dL Creatinine 1.2 (0.7-1.3) mg/dL Est Cr Clr Drug Dosing 47.40 mL/min Estimated GFR (MDRD) 58 (>60) mL/min BUN/Creatinine Ratio 13.3 L (14-18) Glucose 91 (83-115) mg/dL Calcium 8.7 (8.5-10.1) mg/dL Total Bilirubin 0.3 (0.2-1.0) mg/dL AST 11 L (15-37) U/L ALT 13 L (16-63) U/L Alkaline Phosphatase 64 (46-116) U/L Total Protein 6.8 (6.4-8.2) g/dl Albumin 3.2 L (3.4-5.0) g/dl Globulin 3.6 gm/dL Albumin/Globulin Ratio 0.9 L (1-2) Urine Color Yellow (Yellow) Urine Appearance Clear (Clear) Urine pH 6.0 (5.0-8.0) Ur Specific [place] 1.020 (1.005-1.030) Urine Protein Negative (Negative) Urine Glucose (UA) Negative (Negative) Urine Ketones Trace H (Negative) Urine Occult Blood Negative (Negative) Urine Nitrite Negative (Negative) Urine Bilirubin Negative (Negative) Urine Urobilinogen 0.2 (0.2-1.0) Ur Leukocyte Esterase Negative (Negative) Urine RBC 0-5 (0-5) /hpf Urine WBC 0-5 (0-5) /hpf Ur Squamous Epith Cells 0-5 (0-5) /hpf Urine Bacteria Few (FEW) /hpf Hyaline Casts 0-5 (0-5) /lpf Urine Mucus Moderate H (FEW) /hpf Meds: Medications Generic Name Dose Route Start Last Admin Trade Name Freq PRN Reason Stop Dose Admin Sodium Chloride 1,000 mls @ 999 mls/hr 08/10/19 12:30 08/10/19 13:07 Normal Saline IV 999 mls/hr ASDIRECTED NALDO Administration Sodium Chloride 10 ml 08/10/19 12:26 08/10/19 12:50 Saline Flush FLUSH 10 ml ASDIRECTED PRN Administration Keep Vein Open Sodium Chloride 10 ml 08/10/19 13:19 08/10/19 14:18 Saline Flush FLUSH 10 ml ONETIME PRN Administration IV FLUSH Discontinued Medications Generic Name Dose Route Start Last Admin Trade Name Freq PRN Reason Stop Dose Admin Diatrizoate Meglum/Diatrizoate Sod 120 ml 08/10/19 13:19 08/10/19 14:18 Gastrografin 37% PO 08/10/19 13:20 90 ml ONETIME ONE Administration Iopamidol 100 ml 08/10/19 13:19 08/10/19 14:18 Isovue-300 (61%) IVPUSH 08/10/19 13:20 100 ml ONETIME ONE Administration Ondansetron HCl 4 mg 08/10/19 12:25 08/10/19 13:05 Zofran IVPUSH 08/10/19 12:26 4 mg ONETIME ONE Administration - Re-Assessments/Exams Free Text/Narrative Re-Assessment/Exam: 08/10/19 12:49 Patient presents to the ED for evaluation of bilateral lower abdominal pain. Did order IV to be placed, some IV fluids, CBC, CMP, urinalysis, abdominal pelvis CT with contrast for further evaluation. 08/10/19 14:[address] is done, and demonstrates that his abdominal aortic aneurysm is fairly stable from previous exam, at 3.[address] did demonstrate findings suspicious of mild diverticulitis, I will get the patient on a course of Augmentin, 1 tab 3 times a day for 7 days for this. Patient will be discharged home with general recommendations. Departure - Departure Time of Disposition: 14:55 Disposition: Home, Self-Care 01 Condition: Fair Clinical Impression: Diverticulitis, Abdominal aortic aneurysm (AAA) 30 to 34 mm in diameter - Discharge Information *PRESCRIPTION DRUG MONITORING PROGRAM REVIEWED*: No *COPY OF PRESCRIPTION DRUG MONITORING REPORT IN PATIENT VIV: No Prescriptions: Amoxicillin/Clavulanate K [Augmentin 500-125 MG] 1 tab PO TID #21 tab Instructions: Diverticulitis Referrals: Brennon Bazzi MD [Primary Care Provider] - Forms: ED Department Discharge Additional Instructions: You were evaluated in the ER today regarding your abdominal pain. A CT was obtained, and demonstrated that you're abdominal aortic aneurysm is felt to be stable from a previous exam at 3.[address] further demonstrated that you're suffering from mild diverticulitis, you will be treated with some antibiotics for this. Your antibiotic prescription was given electronically sent to [facility] pharmacy located near [facility], this pharmacy is only open from 12 to 4 PM today, you will need to go there during this timeframe to obtain this medication and take as prescribed. You were given a informational handout on diverticulitis, please read and review this disease. Please return to the ER if your symptoms should change or worsen. - My Orders Last 24 Hours: My Active Orders 08/10/19 12:26 Peripheral IV Care [RC] . DIRECTED Sodium Chloride 0.9% [Saline Flush] 10 ml FLUSH ASDIRECTED PRN Peripheral IV Insertion Adult [OM.PC] Stat 08/10/19 12:30 Sodium Chloride 0.9% [Normal Saline] 1,000 ml IV ASDIRECTED 08/10/19 13:19 Sodium Chloride 0.9% [Saline Flush] 10 ml FLUSH ONETIME PRN - Assessment/Plan Last 24 Hours: My Active Orders 08/10/19 12:26 Peripheral IV Care [RC] . DIRECTED Sodium Chloride 0.9% [Saline Flush] 10 ml FLUSH ASDIRECTED PRN Peripheral IV Insertion Adult [OM.PC] Stat 08/10/19 12:30 Sodium Chloride 0.9% [Normal Saline] 1,000 ml IV ASDIRECTED 08/10/19 13:19 Sodium Chloride 0.9% [Saline Flush] 10 ml FLUSH ONETIME PRN
[2019-08-10] MEDS ORDERED: Iopamidol 612 MG/ML 100 ML Bottle IVPUSH ONE (13:19)
[2019-08-10] MEDS ORDERED: Diatrizoate Meglumine/Diatrizoate Sodium 37% 120 ML Bottle PO ONE (13:19)
--- NOTE | 2019-08-10 14:42 | CT ---
CT abdomen and pelvis Technique: Multiple axial sections were obtained from above the dome of the diaphragm inferiorly through the pubic symphysis. Intravenous and oral contrast was utilized. Delayed images were also obtained through the bladder. Comparison: Previous CT abdomen and pelvis exam of 01/07/17. Findings: Bowel wall edema is noted within the sigmoid colon in area containing diverticuli. Mild inflammatory change is seen surrounding the sigmoid colon which is felt compatible with mild diverticulitis. Visualized lung bases show nothing acute. Liver contains no focal abnormality. Spleen appears within normal limits. Gallbladder contains no calcified gallstones. Adrenal glands show no nodule. Kidneys show symmetric contrast enhancement. Cortical thinning is noted within the left kidney. No additional abnormality is seen within the kidneys. Pancreas appears within normal limits. Aorta shows atherosclerotic calcification. Distal aorta shows mild aneurysmal dilatation at 3.2 cm in AP dimension. This is felt to be fairly stable from previous exam. No retroperitoneal adenopathy or mesenteric abnormalities are seen. No pelvic mass or adenopathy is seen. Prostate gland is slightly enlarged. Delayed images shows contrast within the ureters and and bladder. Appendix not visualized with certainty. Bone window settings were reviewed which show scattered degenerative change throughout the spine. No acute osseous abnormality is seen. Impression: 1. Findings as described above which is felt compatible with mild diverticulitis. 2. Stable aneurysm within the distal abdominal aorta. 3. Other findings which are felt to be incidental as described above. Diagnostic code #3
[2019-08-10 15:15] VITALS: BP 175/84; PULSE 74
== END 2019-08-10 15:05 | disposition home or self-care (01) ==
LOC: JD.ED 11:57
DX: I71.4 Abdominal aortic aneurysm, without rupture (principal); K57.32 Diverticulitis of large intestine without perforation or abscess without bleeding; I25.10 Atherosclerotic heart disease of native coronary artery without angina pectoris; K21.9 Gastro-esophageal reflux disease without esophagitis; K57.92 Diverticulitis of intestine, part unspecified, without perforation or abscess without bleeding; I10 Essential (primary) hypertension; F17.210 Nicotine dependence, cigarettes, uncomplicated; Z79.01 Long term (current) use of anticoagulants; Z79.899 Other long term (current) drug therapy; Z86.73 Personal history of transient ischemic attack (TIA), and cerebral infarction without residual deficits
CPT/HCPCS: 36415; 74177; 74177-26; 80053; 81001; 85007; 85027; 96361; 96374; 99284; 99284-25; J2405; J7040; Q9963; Q9967

== ENCOUNTER 2021-04-25 11:01 | Observation (INO) | payer MEDICARE, OTHER ==
[2021-04-25] MEDS ORDERED: Sodium Chloride 0.9% 10 ML Syringe FLUSH PRN (11:12)
[2021-04-25] MEDS ORDERED: Sodium Chloride 0.9% 1,000 ML IV STA (11:21)
--- NOTE | 2021-04-25 11:59 | EDM.PDOC ---
ED HPI GENERAL MEDICAL PROBLEM - General Chief Complaint: Syncope Stated Complaint: [facility] Time Seen by Provider: 04/25/21 11:07 Source of Information: Reports: Patient, RN Notes Reviewed History Limitations: Reports: No Limitations - History of Present Illness INITIAL COMMENTS - FREE TEXT/NARRATIVE: Patient is an 80-year-old male presenting to the emergency department after near syncope. Patient reports that around 4 AM this morning, he woke up with diarrhea. He had approximate 4 episodes of diarrhea this morning. He then went outside for about 20 minutes to do some work. After coming inside, he was standing at the sink getting a drink water when he became dizzy. He reports that he lowered himself down to the floor and his called the ambulance. He denies falling or hitting his head. States he did not lose consciousness. Denies any abdominal pain, nausea, vomiting, chest pain, dizziness, headache, or any symptoms at this time. Denies any weakness. States that he feels "really good "right now. Patient reports history of hydrocephalus for the last 3 years and has had CVAs in the past, but denies any residual deficits. He does not have a shunt. - Related Data Allergies Allergy/AdvReac Type Severity Reaction Status Date / Time No Known Allergies Allergy Verified 04/25/21 11:09 Home Meds: Home Meds Albuterol [Ventolin HFA] 2 puff INH Q6H PRN 06/05/15 [History] Clopidogrel [Plavix] 75 mg PO DAILY 06/05/15 [History] Pantoprazole Sodium [Protonix] 40 mg PO DAILY 06/13/18 [History] Sucralfate 1 tab PO QID 11/09/18 [History] Losartan Potassium [Cozaar] 50 mg PO DAILY 06/16/19 [History] Amoxicillin/Clavulanate K [Augmentin 500-125 MG] 1 tab PO TID #21 tab 08/10/19 [Rx] Past Medical History HEENT History: Reports: Cataract, Impaired Vision, Other (See Below) Other HEENT History: wears glasses, has dentures Cardiovascular History: Reports: Aneurysm, CAD, High Cholesterol, Hypertension, Stents, Other (See Below) Other Cardiovascular History: carotid stenosis, peripheral vascular disease, carotid stent, right carotid endarterectomy Respiratory History: Reports: None Other Respiratory History: Uses inhaler, unknown reason, said per MD, give cammy more energy Gastrointestinal History: Reports: Diverticulosis, GERD, Hiatal Hernia Genitourinary History: Reports: None [employer] History: Reports: None Musculoskeletal History: Reports: None Neurological History: Reports: CVA Psychiatric History: Reports: None Endocrine/Metabolic History: Reports: None Hematologic History: Reports: None Immunologic History: Reports: None Oncologic (Cancer) History: Reports: Basal Cell Carcinoma Dermatologic History: Reports: None - Infectious Disease History Infectious Disease History: Reports: None - Past Surgical History Head Surgeries/Procedures: Reports: None Cardiovascular Surgical History: Reports: Carotid Endarterectomy, Carotid Stents, Vascular Surgery, Other (See Below) Other Cardiovascular Surgeries/Procedures: carotid artery graft Respiratory Surgical History: Reports: None GI Surgical History: Reports: Colonoscopy, EGD, Hernia Repair/Other Male Surgical History: Reports: None Endocrine Surgical History: Reports: None Neurological Surgical History: Reports: None Musculoskeletal Surgical History: Reports: Other (See Below) Other Musculoskeletal Surgeries/Procedures:: bilateral dupytren's contracture release Oncologic Surgical History: Reports: None Dermatological Surgical History: Reports: None Social & Family History - Tobacco Use Tobacco Use Status *Q: Current Every Day Tobacco User Years of Tobacco use: 60 Packs/Tins Daily: 1.5 - Caffeine Use Caffeine Use: Reports: None - Recreational Drug Use Recreational Drug Use: No - Living Situation & Occupation Living situation: Reports: Occupation: Retired ED ROS GENERAL - Review of Systems Review Of Systems: See Below Constitutional: Reports: No Symptoms. Denies: Fever, Chills HEENT: Reports: No Symptoms Respiratory: Reports: No Symptoms. Denies: Shortness of Breath Cardiovascular: Reports: No Symptoms. Denies: Chest Pain Endocrine: Reports: No Symptoms GI/Abdominal: Reports: Diarrhea. Denies: Abdominal Pain, Nausea, Vomiting : Reports: No Symptoms Musculoskeletal: Reports: No Symptoms Skin: Reports: No Symptoms Neurological: Reports: Dizziness Psychiatric: Reports: No Symptoms Hematologic/Lymphatic: Reports: No Symptoms Immunologic: Reports: No Symptoms - Physical Exam Exam: See Below Exam Limited By: No Limitations General Appearance: Alert, WD/WN, No Apparent Distress Eye Exam: Bilateral Eye: Normal Inspection Head Exam: Atraumatic, Normocephalic Respiratory/Chest: No Respiratory Distress, Lungs Clear, Normal Breath Sounds, No Accessory Muscle Use, Chest Non-Tender Cardiovascular: Normal Peripheral Pulses, Regular Rate, Rhythm, No Edema, No Gallop, No JVD, No Murmur, No Rub GI/Abdominal: Normal Bowel Sounds, Soft, Non-Tender, No Organomegaly, No Distention, No Abnormal Bruit, No Mass Neuro Exam (Abbreviated): Alert, Oriented, CN II-XII Intact, Normal Cognition, Normal Gait, Normal Reflexes, No Motor/Sensory Deficits, Other (Equal strength bilaterally. No facial droop.) Extremities: Normal Inspection, Normal Range of Motion, Non-Tender, No Pedal Edema, Normal Capillary Refill Psychiatric: Normal Affect, Normal Mood Skin Exam: Warm, Dry, Intact, Normal Color, No Rash #1 Interpretation EKG Date: 04/25/21 Time: 11:47 Rhythm: NSR Rate (Beats/Min): 65 [place]: Normal P-Wave: Present QRS: Normal ST-T: Normal QT: Normal EKG Interpretation Comments: This rhythm at 65/min P wave inversion V1 V2 Initial poor R wave progression Left ventricular hypertrophy pattern No signs of ischemia EKG interpretted by Dr. Margaret MD. Course - Vital Signs Last Recorded V/S: Last Vital Signs Temp 97.3 F 04/25/21 11:06 Pulse 60 04/25/21 11:06 Resp 16 04/25/21 11:06 BP 84/73 L 04/25/21 11:06 Pulse Ox 100 04/25/21 11:06 - Orders/Labs/Meds Orders: Active Orders 24 hr Category Date Time Status Patient Status [ADT] Routine ADT 04/25/21 17:31 Active EKG Documentation Completion [RC] STAT Care 04/25/21 11:12 Active Oxygen Therapy [RC] PRN Care 04/25/21 17:31 Active Oxygen Therapy [RC] PRN Care 04/25/21 17:34 Active Peripheral IV Care [RC] . DIRECTED Care 04/25/21 11:12 Active RT Aerosol Therapy [RC] ASDIRECTED Care 04/25/21 17:36 Active Up With Assistance [RC] ASDIRECTED Care 04/25/21 17:31 Active VTE/DVT Education [RC] PER UNIT ROUTINE Care 04/25/21 17:31 Active VTE/DVT Education [RC] PER UNIT ROUTINE Care 04/25/21 17:34 Active Vital Signs [RC] Q4H Care 04/25/21 17:31 Active Vital Signs [RC] Q4H Care 04/25/21 17:34 Active OT Evaluation and Treatment [CONS] Routine Cons 04/25/21 17:33 Active PT Evaluation and Treatment [CONS] Routine Cons 04/25/21 17:33 Active Heart Healthy Diet [DIET] Diet 04/26/21 Breakfast Active Brain wo Cont [MR] Stat Exams 04/25/21 14:50 Taken CBC WITH AUTO DIFF [HEME] AM Lab 04/26/21 05:11 Ordered COMPREHENSIVE METABOLIC PN,CMP [CHEM] AM Lab 04/26/21 05:11 Ordered CORONAVIRUS COVID-19 SONIA [MOLEC] Stat Lab 04/25/21 16:45 Received MAGNESIUM [CHEM] AM Lab 04/26/21 05:11 Ordered Acetaminophen [TylenoL] Med 04/25/21 17:33 Ordered 650 mg PO Q4H PRN Albuterol/Ipratropium [DuoNeb 3.0-0.5 MG/3 ML] Med 04/25/21 17:33 Ordered 3 ml NEB Q4H PRN Heparin Sodium Med 04/25/21 17:45 Ordered 5,000 units SUBCUT Q8H Nicotine [Habitrol] Med 04/25/21 17:45 Active 14 mg TRDERM DAILY Ondansetron [Zofran ODT] Med 04/25/21 17:33 Ordered 4 mg PO Q4H PRN Sodium Chloride 0.9% [Saline Flush] Med 04/25/21 11:12 Active 10 ml FLUSH ASDIRECTED PRN oxyCODONE Med 04/25/21 17:33 Ordered 5 mg PO Q4H PRN Peripheral IV Insertion Adult [OM.PC] Stat Oth 04/25/21 11:12 Ordered VTE Mechanical Contraindications [AST] Per Unit Routine Oth 04/25/21 17:33 Ordered Resuscitation Status Routine Resus Stat 04/25/21 17:31 Ordered Medication Orders Acetaminophen (Acetaminophen 325 Mg Tab) 650 mg PO Q4H PRN PRN Reason: Pain (Mild 1-3)/fever Albuterol/Ipratropium (Albuterol/Ipratropium 3.0-0.5 Mg/3 Ml Neb Soln) 3 ml NEB Q4H PRN PRN Reason: Shortness Of Breath/wheezing Heparin Sodium (Porcine) (Heparin Sodium 5,000 Units/Ml Vial) 5,000 units SUBCUT Q8H [facility] Miscellaneous Information (Remove Patch) 0 ea TRDERM DAILY [facility] Nicotine (Nicotine 14 Mg/24 Hr Patch) 14 mg TRDERM DAILY [facility] Ondansetron HCl (Ondansetron 4 Mg Tab.Dis) 4 mg PO Q4H PRN PRN Reason: nausea, able to take PO Oxycodone HCl (Oxycodone 5 Mg Tab) 5 mg PO Q4H PRN PRN Reason: Pain (moderate 4-6) Sodium Chloride (Sodium Chloride 0.9% 10 Ml Syringe) 10 ml FLUSH ASDIRECTED PRN PRN Reason: Keep Vein Open Last Admin: 04/25/21 11:17 Dose: 10 ml Documented by: KEVIN Labs: Laboratory Tests 04/25/21 04/25/21 04/25/21 Range/Units 11:28 11:28 13:25 WBC 9.23 H (4.23-9.07) K/mm3 RBC 4.60 L (4.63-6.08) M/mm3 Hgb 15.1 D (13.7-17.5) gm/dl Hct 45.1 (40.1-51.0) % MCV 98.0 H D (79.0-92.2) fl MCH 32.8 H (25.7-32.2) pg MCHC 33.5 (32.2-35.5) g/dl RDW Std Deviation 47.5 H (35.1-43.9) fL Plt Count 268 D (163-337) K/mm3 MPV 9.1 L (9.4-12.3) fl Neut % (Auto) 90.1 H (34.0-67.9) % Lymph % (Auto) 4.2 L (21.8-53.1) % [place] % (Auto) 2.5 L (5.3-12.2) % Eos % (Auto) 3.0 (0.8-7.0) Baso % (Auto) 0.1 (0.1-1.2) % Neut # (Auto) 8.31 H (1.78-5.38) K/mm3 Lymph # (Auto) 0.39 L (1.32-3.57) K/mm3 [place] # (Auto) 0.23 L (0.30-0.82) K/mm3 Eos # (Auto) 0.28 (0.04-0.54) K/mm3 Baso # (Auto) 0.01 (0.01-0.08) K/mm3 Manual Slide Review Not Reportable Sodium 141 (136-145) mEq/L Potassium 5.1 (3.5-5.1) mEq/L Chloride 108 H (98-107) mEq/L Carbon Dioxide 24 (21-32) mEq/L Anion Gap 14.1 (5-15) BUN 29 H (7-18) mg/dL Creatinine 1.6 H (0.7-1.3) mg/dL Est Cr Clr Drug Dosing 35.44 mL/min Estimated GFR (MDRD) 42 (>60) mL/min BUN/Creatinine Ratio 18.1 H (14-18) Glucose 109 H (70-99) mg/dL Calcium 8.5 (8.5-10.1) mg/dL Magnesium 1.9 (1.8-2.4) mg/dL Total Bilirubin 0.6 (0.2-1.0) mg/dL AST 11 L (15-37) U/L ALT 17 (16-63) U/L Alkaline Phosphatase 68 (46-116) U/L Troponin I < 0.017 (0.00-0.056) ng/mL C-Reactive Protein <0.2 (<1.0) mg/dL Total Protein 6.9 (6.4-8.2) g/dl Albumin 3.3 L (3.4-5.0) g/dl Globulin 3.6 gm/dL Albumin/Globulin Ratio 0.9 L (1-2) Urine Color Yellow (Yellow) Urine Appearance Clear (Clear) Urine pH 5.5 (5.0-8.0) Ur Specific Marty 1.025 (1.005-1.030) Urine Protein Trace H (Negative) Urine Glucose (UA) Negative (Negative) Urine Ketones Negative (Negative) Urine Occult Blood Negative (Negative) Urine Nitrite Negative (Negative) Urine Bilirubin Negative (Negative) Urine Urobilinogen 0.2 (0.2-1.0) Ur Leukocyte Esterase Negative (Negative) U Hyaline Cast (Auto) 0-5 (0-5) /lpf Urine RBC 0-5 (0-5) /hpf Urine WBC 0-5 (0-5) /hpf Ur Epithelial Cells 0-5 (0-5) /hpf Urine Bacteria Moderate H (FEW) /hpf Urine Mucus Moderate H (FEW) /hpf Meds: Medications Generic Name Dose Route Start Last Admin Trade Name Lenny PRN Reason Stop Dose Admin Acetaminophen 650 mg 04/25/21 17:33 Acetaminophen 325 Mg Tab PO Q4H PRN Pain (Mild 1-3)/fever Albuterol/Ipratropium 3 ml 04/25/21 17:33 Albuterol/Ipratropium 3.0-0.5 Mg/3 Ml Neb Soln NEB Q4H PRN Shortness Of Breath/wheezing Heparin Sodium (Porcine) 5,000 units 04/25/21 17:45 Heparin Sodium 5,000 Units/Ml Vial SUBCUT Q8H [facility] Miscellaneous Information 0 ea 04/26/21 09:00 Remove Patch TRDERM DAILY [facility] Nicotine 14 mg 04/25/21 17:45 Nicotine 14 Mg/24 Hr Patch TRDERM DAILY [facility] Ondansetron HCl 4 mg 04/25/21 17:33 Ondansetron 4 Mg Tab.Dis PO Q4H PRN nausea, able to take PO Oxycodone HCl 5 mg 04/25/21 17:33 Oxycodone 5 Mg Tab PO Q4H PRN Pain (moderate 4-6) Sodium Chloride 10 ml 04/25/21 11:12 04/25/21 11:17 Sodium Chloride 0.9% 10 Ml Syringe FLUSH 10 ml ASDIRECTED PRN Administration Keep Vein Open Discontinued Medications Generic Name Dose Route Start Last Admin Trade Name Lenny PRN Reason Stop Dose Admin Sodium Chloride 1,000 mls @ 999 mls/hr 04/25/21 11:21 04/25/21 11:27 Normal Saline IV 04/25/21 12:21 999 mls/hr NOW STA Administration - Re-Assessments/Exams Free Text/Narrative Re-Assessment/Exam: Patient is an 80-year-old male presenting to the emergency department after experiencing a near syncopal episode. He reports waking around 4 AM this morning and having diarrhea. Reports approximately 4 large episodes of diarrhea with the last being about 2 hours prior to coming to ER. He then went outside for about 20 minutes. After coming in and standing at the sink to get a drink water, he became dizzy. Reports that he lowered himself down to the floor and that his called the ambulance. He denies losing consciousness. States he did not fall or hit his head. He feels well at this time. Exam is grossly unremarkable. I have ordered blood work, EKG, chest x-ray, head CT. We will give him a 1 L bolus of normal saline as his blood pressure was initially low on arrival to ER at 84/73. Subsequent reading 3 minutes later was 126/58. 04/25/21 1340 Hematology was significant for BUN minimally elevated 29, creatinine 1.6. Otherwise unremarkable. Troponin is undetectable. Urinalysis is pending. Head CT shows no acute intracranial abnormalities. Chest x-ray also shows no acute abnormalities. Patient states that he is feeling well. He was able to stand at the bedside and use urinal without difficulty. We will await the results of the urinalysis. 04/25/21 14:53 Patient got up to use the bathroom with his and she reports that he had difficulty walking. She also states that he is much more agitated than he normally is. She is concerned with taking him home. Patient at this time states that he did have some weakness in his right lower extremity which he had previously denied. He now tells me that he thinks the leg has been more weak since early this morning, even before he was walking around outside and working. I had assisted the patient earlier to stand and obtain a urine sample and he had no difficulty with standing. Repeat neurologic exam did show drifting of the right lower extremity which was not previously present. Upper grasps continue to be equal bilaterally. There is no facial droop or speech difficulties. Suspicious this could be related to his normal pressure hydrocephalus. reports that there had been discussion of having a shunt placed, however neurology decided that it would not be in his best interest because he tends to have strokes whenever he has a procedure done. Spoke with radiology and they can get the patient in for an MRI of the brain in about 20 minutes. I have ordered MRI of the brain without contrast. 04/25/21 1645 MRI of the brain shows: 1. No acute infarct, acute intracranial hemorrhage, or mass-effect. 2. Dilatation of the ventricles out of proportion to the degree of cortical atrophy., Which can be seen in central greater than peripheral atrophy versus normal pressure hydrocephalus. I suspect his gait disturbance and difference in affect is related to his normal pressure hydrocephalus. Family is concerned with him going home and would like him admitted to observation. Patient was initially not in agreement with being admitted, however he has agreed to stay the evening to ensure that his symptoms do not worsen. Case was discussed with hospitalist, Dr. Avitia. He has accepted the patient for admission. Covid screening has been ordered. Departure - Departure Time of Disposition: 16:45 Disposition: Refer to Observation Condition: Good Clinical Impression: Near syncope, Normal pressure hydrocephalus syndrome, Gait disturbance - Discharge Information *PRESCRIPTION DRUG MONITORING PROGRAM REVIEWED*: No *COPY OF PRESCRIPTION DRUG MONITORING REPORT IN PATIENT VIV: No Sepsis Event Note (ED) - Evaluation Sepsis Screening Result: No Definite Risk - Focused Exam Vital Signs: Vital Signs Temp Pulse Resp BP Pulse Ox 04/25/21 11:06 97.3 F 60 16 84/73 L 100 - My Orders Last 24 Hours: My Active Orders 04/25/21 11:12 EKG Documentation Completion [RC] STAT Peripheral IV Care [RC] . DIRECTED Sodium Chloride 0.9% [Saline Flush] 10 ml FLUSH ASDIRECTED PRN Peripheral IV Insertion Adult [OM.PC] Stat 04/25/21 14:50 Brain wo Cont [MR] Stat 04/25/21 16:45 CORONAVIRUS COVID-19 SONIA [MOLEC] Stat - Assessment/Plan Last 24 Hours: My Active Orders 04/25/21 11:12 EKG Documentation Completion [RC] STAT Peripheral IV Care [RC] . DIRECTED Sodium Chloride 0.9% [Saline Flush] 10 ml FLUSH ASDIRECTED PRN Peripheral IV Insertion Adult [OM.PC] Stat 04/25/21 14:50 Brain wo Cont [MR] Stat 04/25/21 16:45 CORONAVIRUS COVID-19 SONIA [MOLEC] Stat
--- NOTE | 2021-04-25 12:00 | CT ---
Head CT Technique: Multiple axial sections through the brain were obtained. Intravenous contrast was not utilized. Reconstructed coronal and sagittal images were obtained. Comparison: Prior head CT study of 02/26/19. Findings: Ventricles along with basal cisterns and sulci over the convexities are stable in appearance from previous study. This is felt compatible with greater central atrophy. Old lacunar infarcts are noted within the basal ganglia. Minimal diminished density is seen within the periventricular white matter compatible with slight small vessel ischemic demyelination change. No evidence of intracranial hemorrhage is seen. No midline shift or mass-effect is seen. Bone window settings were reviewed. Visualized mastoid sinuses and paranasal sinuses show nothing acute. Slight atherosclerotic calcification is seen within the carotid siphon. No acute calvarial abnormality is appreciated. Impression: 1. Senescent change as noted above. 2. Nothing acute is appreciated on noncontrast head CT study. Diagnostic code #2
--- NOTE | 2021-04-25 12:31 | CR ---
Chest: 2 views of the chest were obtained. Comparison: Prior chest x-ray of 06/13/18. Heart size is normal. Upper mediastinum is normal. Lungs are clear with no acute parenchymal change. Mild degenerative change scattered within the spine. Slight vascular calcification is seen within visualized portions of the neck vessels. Impression: 1. Findings as noted above. 2. Nothing acute is seen. Diagnostic code #2
--- NOTE | 2021-04-25 17:30 | PCM.HP.2 ---
H&P History of Present Illness - General Date of Service: 04/25/21 Admit Problem/Dx: Gait disturbance, normal pressure hydrocephalus. Source of Information: Patient, Family History Limitations: Reports: No Limitations - History of Present Illness Initial Comments - Free Text/Narative: The patient is an 80-year-old gentleman who had presented to the emergency department with a complaint of weakness, inability to walk properly and near fall. Apparently the patient had some diarrhea prior to presentation but this has subsequently resolved. The patient has a history of normal pressure hydrocephalus. Both him and his report episodes of weakness and inability to ambulate and does not feel safe going home at this time. The patient has denied any nausea or vomiting. He has had no dizziness. He did not actually have a blackout. Patient has had strokes in the past. He has denied any resid ual deficits. The patient and the patient's family had not wanted a shunt for his NPH and the reason for this was that every time the patient has had an operation he has had to go off of his Plavix and he has had stroke symptoms. No other complaints. Onset of Symptoms: Reports: Gradual Duration of Symptoms: Reports: Day(s): Location: Reports: Generalized Quality: Reports: Same as Previous Episode Improves with: Reports: None Worsens with: Reports: None Associated Symptoms: Reports: No Other Symptoms - Related Data Allergies/Adverse Reactions: Allergies Allergy/AdvReac Type Severity Reaction Status Date / Time No Known Allergies Allergy Verified 04/25/21 11:09 Home Medications: Home Meds Albuterol [Ventolin HFA] 2 puff INH Q6H PRN 06/05/15 [History] Clopidogrel [Plavix] 75 mg PO DAILY 06/05/15 [History] Pantoprazole Sodium [Protonix] 40 mg PO DAILY 06/13/18 [History] Sucralfate 1 tab PO QID 11/09/18 [History] Losartan Potassium [Cozaar] 50 mg PO DAILY 06/16/19 [History] Donepezil [Aricept] 5 mg PO BEDTIME 04/26/21 [History] Pravastatin [Pravachol] 40 mg PO DAILY 04/26/21 [History] Triamcinolone Acetonide [Triamcinolone Acetonide 0.025%] 1 applic TOP BID 04/26/21 [History] Past Medical History HEENT History: Reports: Cataract, Impaired Vision, Other (See Below) Other HEENT History: wears glasses, has dentures Cardiovascular History: Reports: Aneurysm, CAD, High Cholesterol, Hypertension, Stents, Other (See Below) Other Cardiovascular History: carotid stenosis, peripheral vascular disease, carotid stent, right carotid endarterectomy Respiratory History: Reports: None Other Respiratory History: Uses inhaler, unknown reason, said per MD, give cammy more energy Gastrointestinal History: Reports: Diverticulosis, GERD, Hiatal Hernia Genitourinary History: Reports: None [employer] History: Reports: None Musculoskeletal History: Reports: None Neurological History: Reports: CVA Psychiatric History: Reports: None Endocrine/Metabolic History: Reports: None Hematologic History: Reports: None Immunologic History: Reports: None Oncologic (Cancer) History: Reports: Basal Cell Carcinoma Dermatologic History: Reports: None - Infectious Disease History Infectious Disease History: Reports: None - Past Surgical History Head Surgeries/Procedures: Reports: None Cardiovascular Surgical History: Reports: Carotid Endarterectomy, Carotid Stents, Vascular Surgery, Other (See Below) Other Cardiovascular Surgeries/Procedures: carotid artery graft Respiratory Surgical History: Reports: None GI Surgical History: Reports: Colonoscopy, EGD, Hernia Repair/Other Male Surgical History: Reports: None Endocrine Surgical History: Reports: None Neurological Surgical History: Reports: None Musculoskeletal Surgical History: Reports: Other (See Below) Other Musculoskeletal Surgeries/Procedures:: bilateral dupytren's contracture release Oncologic Surgical History: Reports: None Dermatological Surgical History: Reports: None Social & Family History - Tobacco Use Tobacco Use Status *Q: Current Every Day Tobacco User Years of Tobacco use: 60 Packs/Tins Daily: 1.5 - Caffeine Use Caffeine Use: Reports: None - Recreational Drug Use Recreational Drug Use: No - Living Situation & Occupation Living situation: Reports: , with Spouse Occupation: Retired H&P Review of Systems - Review of Systems: Review Of Systems: See Below General: Reports: Weakness HEENT: Reports: No Symptoms Pulmonary: Reports: No Symptoms Cardiovascular: Reports: No Symptoms Gastrointestinal: Reports: No Symptoms Genitourinary: Reports: No Symptoms Musculoskeletal: Reports: No Symptoms Skin: Reports: No Symptoms Psychiatric: Reports: No Symptoms Neurological: Reports: Pre-Existing Deficit, Difficulty Walking Hematologic/Lymphatic: Reports: No Symptoms Immunologic: Reports: No Symptoms Exam - Exam Exam: See Below - Vital Signs Vital Signs: Last Vital Signs Temp 36.3 C 07/19/21 11:06 Pulse 60 04/25/21 11:06 Resp 16 04/25/21 11:06 BP 84/73 L 04/25/21 11:06 Pulse Ox 100 04/25/21 11:06 Weight: 68.039 kg - Exam Quality Assessment: No: Supplemental Oxygen, DVT Prophylaxis General: Alert, Oriented, Cooperative HEENT: Conjunctiva Clear, EACs Clear, EOMI, Hearing Intact, Mucosa Moist & Raub, PERRLA (Cataracts predominantly left eye) Neck: Supple, Trachea Midline Lungs: Decreased Breath Sounds, Crackles Cardiovascular: Regular Rate, Regular Rhythm, Systolic Murmur (III/ LSB) GI/Abdominal Exam: Normal Bowel Sounds, Soft, Non-Tender, No Distention (Male) Exam: Deferred Rectal (Males) Exam: Deferred Back Exam: Normal Inspection, Full Range of Motion Extremities: Normal Inspection, Normal Range of Motion, No Pedal Edema Skin: Warm, Dry, Intact Neurological: Cranial Nerves Intact Psychiatric: Alert, Normal Affect, Normal Mood - Patient Data Lab Results Last 24 hrs: Laboratory Results - last 24 hr 04/25/21 04/25/21 04/25/21 Range/Units 11:28 11:28 13:25 WBC 9.23 H (4.23-9.07) K/mm3 RBC 4.60 L (4.63-6.08) M/mm3 Hgb 15.1 D (13.7-17.5) gm/dl Hct 45.1 (40.1-51.0) % MCV 98.0 H D (79.0-92.2) fl MCH 32.8 H (25.7-32.2) pg MCHC 33.5 (32.2-35.5) g/dl RDW Std Deviation 47.5 H (35.1-43.9) fL Plt Count 268 D (163-337) K/mm3 MPV 9.1 L (9.4-12.3) fl Neut % (Auto) 90.1 H (34.0-67.9) % Lymph % (Auto) 4.2 L (21.8-53.1) % [place] % (Auto) 2.5 L (5.3-12.2) % Eos % (Auto) 3.0 (0.8-7.0) Baso % (Auto) 0.1 (0.1-1.2) % Neut # (Auto) 8.31 H (1.78-5.38) K/mm3 Lymph # (Auto) 0.39 L (1.32-3.57) K/mm3 [place] # (Auto) 0.23 L (0.30-0.82) K/mm3 Eos # (Auto) 0.28 (0.04-0.54) K/mm3 Baso # (Auto) 0.01 (0.01-0.08) K/mm3 Manual Slide Review Not Reportable Sodium 141 (136-145) mEq/L Potassium 5.1 (3.5-5.1) mEq/L Chloride 108 H (98-107) mEq/L Carbon Dioxide 24 (21-32) mEq/L Anion Gap 14.1 (5-15) BUN 29 H (7-18) mg/dL Creatinine 1.6 H (0.7-1.3) mg/dL Est Cr Clr Drug Dosing 35.44 mL/min Estimated GFR (MDRD) 42 (>60) mL/min BUN/Creatinine Ratio 18.1 H (14-18) Glucose 109 H (70-99) mg/dL Calcium 8.5 (8.5-10.1) mg/dL Magnesium 1.9 (1.8-2.4) mg/dL Total Bilirubin 0.6 (0.2-1.0) mg/dL AST 11 L (15-37) U/L ALT 17 (16-63) U/L Alkaline Phosphatase 68 (46-116) U/L Troponin I < 0.017 (0.00-0.056) ng/mL C-Reactive Protein <0.2 (<1.0) mg/dL Total Protein 6.9 (6.4-8.2) g/dl Albumin 3.3 L (3.4-5.0) g/dl Globulin 3.6 gm/dL Albumin/Globulin Ratio 0.9 L (1-2) Urine Color Yellow (Yellow) Urine Appearance Clear (Clear) Urine pH 5.5 (5.0-8.0) Ur Specific [place] 1.025 (1.005-1.030) Urine Protein Trace H (Negative) Urine Glucose (UA) Negative (Negative) Urine Ketones Negative (Negative) Urine Occult Blood Negative (Negative) Urine Nitrite Negative (Negative) Urine Bilirubin Negative (Negative) Urine Urobilinogen 0.2 (0.2-1.0) Ur Leukocyte Esterase Negative (Negative) U Hyaline Cast (Auto) 0-5 (0-5) /lpf Urine RBC 0-5 (0-5) /hpf Urine WBC 0-5 (0-5) /hpf Ur Epithelial Cells 0-5 (0-5) /hpf Urine Bacteria Moderate H (FEW) /hpf Urine Mucus Moderate H (FEW) /hpf Result Diagrams: 04/26/21 05:40 04/26/21 05:40 Sepsis Event Note - Evaluation Sepsis Screening Result: No Definite Risk - Focused Exam Vital Signs: Vital Signs Temp Pulse Resp BP Pulse Ox 04/25/21 11:06 36.3 C 60 16 84/73 L 100 - Problem List (1) Normal pressure hydrocephalus syndrome SNOMED Code(s): 99871393 ICD Code: G91.2 - (IDIOPATHIC) NORMAL PRESSURE HYDROCEPHALUS Status: Chronic Priority: High Current Visit: Yes (2) Gait disturbance SNOMED Code(s): 67489200 ICD Code: R26.9 - UNSPECIFIED ABNORMALITIES OF GAIT AND MOBILITY Status: Chronic Priority: High Current Visit: Yes (3) Near syncope SNOMED Code(s): 745247179 ICD Code: R55 - SYNCOPE AND COLLAPSE Status: Chronic Priority: High Current Visit: Yes Problem List Initiated/Reviewed/Updated: Yes Orders Last 24hrs: Active Orders 24 hr Category Date Time Status EKG Documentation Completion [RC] STAT Care 04/25/21 11:12 Active Peripheral IV Care [RC] . DIRECTED Care 04/25/21 11:12 Active Brain wo Cont [MR] Stat Exams 04/25/21 14:50 Taken CORONAVIRUS COVID-19 SONIA [MOLEC] Stat Lab 04/25/21 16:45 Received Sodium Chloride 0.9% [Saline Flush] Med 04/25/21 11:12 Active 10 ml FLUSH ASDIRECTED PRN Peripheral IV Insertion Adult [OM.PC] Stat Oth 04/25/21 11:12 Ordered Medication Orders Sodium Chloride (Sodium Chloride 0.9% 10 Ml Syringe) 10 ml FLUSH ASDIRECTED PRN PRN Reason: Keep Vein Open Last Admin: 04/25/21 11:17 Dose: 10 ml Documented by: KEVIN Assessment/Plan Comment:: The patient is an 80-year-old gentleman who has been admitted to observation secondary to his gait disturbance associated with normal pressure hydrocephalus. PT OT has been ordered for the patient. Continue to monitor the patient. Repeat laboratory studies have been ordered for the morning. Regular diet as tolerated. The patient will likely need to follow-up with neurology. The patient's home medications will be continued after reconciliation. He is currently anticoagulated with Plavix. Possible discharge tomorrow morning.
[2021-04-25] MEDS ORDERED: Albuterol/Ipratropium 3.0-0.5 MG/3 ML Neb Soln NEB PRN (17:33)
[2021-04-25] MEDS ORDERED: Acetaminophen 325 MG Tab PO PRN (17:33)
[2021-04-25] MEDS ORDERED: Ondansetron 4 MG Tab.DIS PO PRN (17:33)
[2021-04-25] MEDS ORDERED: oxyCODONE 5 MG Tab PO PRN (17:33)
[2021-04-25] MEDS ORDERED: Heparin Sodium 5,000 Units/ML Vial SUBCUT SCH (19:00)
[2021-04-25] MEDS: Nicotine 14 MG/24 Hr Patch TRDERM SCH (19:45)
[2021-04-25] MEDS ORDERED: DONEPEZIL 5 MG PO SCH (21:00)
[2021-04-26] MEDS ORDERED: Heparin Sodium 5,000 Units/ML Vial SUBCUT SCH (04:00)
[2021-04-26] MEDS ORDERED: Albuterol 6.7 GM Inhaler INH PRN (06:47)
[2021-04-26 07:54] VITALS: BP 131/63; PULSE 60
--- NOTE | 2021-04-26 08:14 | MR ---
MRI brain Technique: T1 sagittal; T2, T2 FLAIR, T1 and diffusion axial; T1 and gradient echo T2 weighted coronal images were also obtained. Comparison: Prior head CT study of 04/25/21. Findings: Ventricles are dilated out of proportion to the sulci over the convexities. This appears similar to prior studies which is felt compatible with greater central atrophy. Normal signal void is seen within the major cerebral arteries within the skull base. Small amount of increased signal is scattered within the periventricular white matter compatible with minimal small vessel ischemic demyelination change. There are no areas of abnormal diffusion being seen. No abnormal signal is seen on the gradient echo sequence. Visualized mastoid sinuses and paranasal sinuses show nothing acute. Impression: 1. Greater central atrophy. Minimal small vessel ischemic demyelination change is noted. 2. No acute diffusion abnormalities are seen. Diagnostic code #2 I agree with preliminary report from [facility], finalized on 04/25/21, 5:20 PM CDT, code 1
[2021-04-26] MEDS: Nicotine 14 MG/24 Hr Patch TRDERM SCH (08:37)
--- NOTE | 2021-04-26 08:41 | PCM.DCSUM1 ---
Discharge Summary - Hospital Course HPI Initial Comments: Exacerbation of normal pressure hydrocephalus. Diagnosis: Stroke: No - Discharge Data Discharge Date: 04/26/21 Discharge Disposition: Home, Self-Care 01 Condition: Fair - Referral to Home Health Primary Care Physician: Brennon Bazzi MD - Discharge Diagnosis/Problem(s) (1) Normal pressure hydrocephalus syndrome SNOMED Code(s): 50939313 ICD Code: G91.2 - (IDIOPATHIC) NORMAL PRESSURE HYDROCEPHALUS Status: Chronic Priority: High (2) Gait disturbance SNOMED Code(s): 08600384 ICD Code: R26.9 - UNSPECIFIED ABNORMALITIES OF GAIT AND MOBILITY Status: Chronic Priority: High (3) Near syncope SNOMED Code(s): 596883569 ICD Code: R55 - SYNCOPE AND COLLAPSE Status: Chronic Priority: High (4) Smoking addiction SNOMED Code(s): 024865703, 16323799, 873623438 ICD Code: F17.200 - NICOTINE DEPENDENCE, UNSPECIFIED, UNCOMPLICATED Status: Chronic Priority: Medium - Patient Summary/Data Consults: Consultations 04/25/21 17:33 OT Evaluation and Treatment [CONS] Routine PT Evaluation and Treatment [CONS] Routine Hospital Course: The patient is an 80-year-old gentleman who had been admitted through the emergency department complaining primarily of weakness and inability to walk due to worsening of his normal pressure hydrocephalus. He was overly weak and almost falling at home and he did not feel safe to go home. The patient had denied any dizziness or lightheadedness. The patient also apparently have recommendations for shunt placement however this was not wanted by the patient or the family as he would have to be off his Plavix and would be considered a stroke risk. The patient also had MRI of the brain completed on April 25, 2021 which showed greater central atrophy with small vessel ischemic disease without acute diffusion abnormalities. The patient also had been evaluated by physical therapy and physical therapy felt that the patient could go home. The patient has declined home health. The patient himself says that he has been doing well and he feels like he can go home today. The patient has been recommended to continue with his diet as tolerated. He is also to have activity as tolerated. The patient has been recommended to follow-up with his primary care physician for possible referral to neurology. The patient has continued to smoke and he has refused prescription for nicotine patch. I have strongly counseled the patient with regards to smoking cessation and the use of tobacco and tobacco products. The patient's medications have not been changed. The patient also has been discharged from acute hospitalization with the recommendations listed above. - Patient Instructions Diet: Heart Healthy Diet Activity: As Tolerated Notify Provider of: Fever, Increased Pain, Swelling and Redness - Discharge Plan *PRESCRIPTION DRUG MONITORING PROGRAM REVIEWED*: No *COPY OF PRESCRIPTION DRUG MONITORING REPORT IN PATIENT VIV: No Tobacco Cessation Medication: Prescription Refused Home Medications: Home Meds Albuterol [Ventolin HFA] 2 puff INH Q6H PRN 06/05/15 [History] Clopidogrel [Plavix] 75 mg PO DAILY 06/05/15 [History] Pantoprazole Sodium [Protonix] 40 mg PO DAILY 06/13/18 [History] Sucralfate 1 tab PO QID 11/09/18 [History] Losartan Potassium [Cozaar] 50 mg PO DAILY 06/16/19 [History] Donepezil [Aricept] 5 mg PO BEDTIME 04/26/21 [History] Pravastatin [Pravachol] 40 mg PO DAILY 04/26/21 [History] Triamcinolone Acetonide [Triamcinolone Acetonide 0.025%] 1 applic TOP BID 04/26/21 [History] Oxygen Therapy Mode: Room Air Patient Handouts: Coping with Quitting Smoking, Steps to Quit Smoking Referrals: Brennon Bazzi MD [Primary Care Provider] - 05/04/21 7:30 am (please attend the scheduled hospital follow up appointment as listed. Discuss with your primary care provider regarding seeing a neurologist with this hydrocephalus problem.) - Discharge Summary/Plan Comment DC Time >30 min.: Yes - General Info Date of Service: 04/26/21 Admission Dx/Problem (Free Text: Gait disturbance, normal pressure hydrocephalus. Subjective Update: The patient symptoms of weakness and inability to ambulate properly have resolved. He says that he can go home safely. He has declined home health. Functional Status: Reports: Pain Controlled, Tolerating Diet - Review of Systems General: Reports: No Symptoms HEENT: Reports: No Symptoms Pulmonary: Reports: No Symptoms Cardiovascular: Reports: No Symptoms Gastrointestinal: Reports: No Symptoms Genitourinary: Reports: No Symptoms Musculoskeletal: Reports: No Symptoms Skin: Reports: No Symptoms Neurological: Reports: No Symptoms Psychiatric: Reports: No Symptoms - Patient Data Vitals - Most Recent: Last Vital Signs Temp 36.8 C 04/26/21 07:32 Pulse 60 04/26/21 07:32 Resp 16 04/26/21 07:32 BP 131/63 04/26/21 07:32 Pulse Ox 92 L 04/26/21 07:32 Weight - Most Recent: 65.907 kg I&O - Last 24 hours: Intake & Output 04/25/21 04/26/21 04/26/21 22:59 06:59 14:59 Intake Total 240 300 Output Total 275 Balance 240 25 Lab Results - Last 24 hrs: Laboratory Results - last 24 hr 04/25/21 04/25/21 04/25/21 Range/Units 11:28 11:28 13:25 WBC 9.23 H (4.23-9.07) K/mm3 RBC 4.60 L (4.63-6.08) M/mm3 Hgb 15.1 D (13.7-17.5) gm/dl Hct 45.1 (40.1-51.0) % MCV 98.0 H D (79.0-92.2) fl MCH 32.8 H (25.7-32.2) pg MCHC 33.5 (32.2-35.5) g/dl RDW Std Deviation 47.5 H (35.1-43.9) fL Plt Count 268 D (163-337) K/mm3 MPV 9.1 L (9.4-12.3) fl Neut % (Auto) 90.1 H (34.0-67.9) % Lymph % (Auto) 4.2 L (21.8-53.1) % [place] % (Auto) 2.5 L (5.3-12.2) % Eos % (Auto) 3.0 (0.8-7.0) Baso % (Auto) 0.1 (0.1-1.2) % Neut # (Auto) 8.31 H (1.78-5.38) K/mm3 Lymph # (Auto) 0.39 L (1.32-3.57) K/mm3 [place] # (Auto) 0.23 L (0.30-0.82) K/mm3 Eos # (Auto) 0.28 (0.04-0.54) K/mm3 Baso # (Auto) 0.01 (0.01-0.08) K/mm3 Manual Slide Review Not Reportable Sodium 141 (136-145) mEq/L Potassium 5.1 (3.5-5.1) mEq/L Chloride 108 H (98-107) mEq/L Carbon Dioxide 24 (21-32) mEq/L Anion Gap 14.1 (5-15) BUN 29 H (7-18) mg/dL Creatinine 1.6 H (0.7-1.3) mg/dL Est Cr Clr Drug Dosing 35.44 mL/min Estimated GFR (MDRD) 42 (>60) mL/min BUN/Creatinine Ratio 18.1 H (14-18) Glucose 109 H (70-99) mg/dL Calcium 8.5 (8.5-10.1) mg/dL Magnesium 1.9 (1.8-2.4) mg/dL Total Bilirubin 0.6 (0.2-1.0) mg/dL AST 11 L (15-37) U/L ALT 17 (16-63) U/L Alkaline Phosphatase 68 (46-116) U/L Troponin I < 0.017 (0.00-0.056) ng/mL C-Reactive Protein <0.2 (<1.0) mg/dL Total Protein 6.9 (6.4-8.2) g/dl Albumin 3.3 L (3.4-5.0) g/dl Globulin 3.6 gm/dL Albumin/Globulin Ratio 0.9 L (1-2) Urine Color Yellow (Yellow) Urine Appearance Clear (Clear) Urine pH 5.5 (5.0-8.0) Ur Specific [place] 1.025 (1.005-1.030) Urine Protein Trace H (Negative) Urine Glucose (UA) Negative (Negative) Urine Ketones Negative (Negative) Urine Occult Blood Negative (Negative) Urine Nitrite Negative (Negative) Urine Bilirubin Negative (Negative) Urine Urobilinogen 0.2 (0.2-1.0) Ur Leukocyte Esterase Negative (Negative) U Hyaline Cast (Auto) 0-5 (0-5) /lpf Urine RBC 0-5 (0-5) /hpf Urine WBC 0-5 (0-5) /hpf Ur Epithelial Cells 0-5 (0-5) /hpf Urine Bacteria Moderate H (FEW) /hpf Urine Mucus Moderate H (FEW) /hpf SARS-CoV-2 RNA (SONIA) (NEGATIVE) 04/25/21 04/26/21 04/26/21 Range/Units 16:45 05:40 05:40 WBC 4.49 (4.23-9.07) K/mm3 RBC 4.16 L (4.63-6.08) M/mm3 Hgb 13.4 L D (13.7-17.5) gm/dl Hct 40.3 (40.1-51.0) % MCV 96.9 H (79.0-92.2) fl MCH 32.2 (25.7-32.2) pg MCHC 33.3 (32.2-35.5) g/dl RDW Std Deviation 46.5 H (35.1-43.9) fL Plt Count 217 (163-337) K/mm3 MPV 9.1 L (9.4-12.3) fl Neut % (Auto) 74.6 H (34.0-67.9) % Lymph % (Auto) 14.9 L (21.8-53.1) % [place] % (Auto) 8.5 (5.3-12.2) % Eos % (Auto) 2.0 (0.8-7.0) Baso % (Auto) 0.0 L (0.1-1.2) % Neut # (Auto) 3.35 (1.78-5.38) K/mm3 Lymph # (Auto) 0.67 L (1.32-3.57) K/mm3 [place] # (Auto) 0.38 (0.30-0.82) K/mm3 Eos # (Auto) 0.09 (0.04-0.54) K/mm3 Baso # (Auto) 0.00 L (0.01-0.08) K/mm3 Manual Slide Review Sodium 137 (136-145) mEq/L Potassium 3.9 (3.5-5.1) mEq/L Chloride 105 (98-107) mEq/L Carbon Dioxide 23 (21-32) mEq/L Anion Gap 12.9 (5-15) BUN 24 H (7-18) mg/dL Creatinine 1.2 (0.7-1.3) mg/dL Est Cr Clr Drug Dosing 46.93 mL/min Estimated GFR (MDRD) 58 (>60) mL/min BUN/Creatinine Ratio 20.0 H (14-18) Glucose 92 (70-99) mg/dL Calcium 8.1 L (8.5-10.1) mg/dL Magnesium 1.9 (1.8-2.4) mg/dL Total Bilirubin 0.4 (0.2-1.0) mg/dL AST 16 (15-37) U/L ALT 14 L (16-63) U/L Alkaline Phosphatase 60 (46-116) U/L Troponin I (0.00-0.056) ng/mL C-Reactive Protein (<1.0) mg/dL Total Protein 6.2 L (6.4-8.2) g/dl Albumin 3.0 L (3.4-5.0) g/dl Globulin 3.2 gm/dL Albumin/Globulin Ratio 0.9 L (1-2) Urine Color (Yellow) Urine Appearance (Clear) Urine pH (5.0-8.0) Ur Specific [place] (1.005-1.030) Urine Protein (Negative) Urine Glucose (UA) (Negative) Urine Ketones (Negative) Urine Occult Blood (Negative) Urine Nitrite (Negative) Urine Bilirubin (Negative) Urine Urobilinogen (0.2-1.0) Ur Leukocyte Esterase (Negative) U Hyaline Cast (Auto) (0-5) /lpf Urine RBC (0-5) /hpf Urine WBC (0-5) /hpf Ur Epithelial Cells (0-5) /hpf Urine Bacteria (FEW) /hpf Urine Mucus (FEW) /hpf SARS-CoV-2 RNA (SONIA) Negative (NEGATIVE) Med Orders - Current: Current Medications Acetaminophen (Acetaminophen 325 Mg Tab) 650 mg PO Q4H PRN PRN Reason: Pain (Mild 1-3)/fever Albuterol (Albuterol 6.7 Gm Inhaler) 0 gm INH Q6H PRN PRN Reason: Shortness of Breath Albuterol/Ipratropium (Albuterol/Ipratropium 3.0-0.5 Mg/3 Ml Neb Soln) 3 ml NEB Q4H PRN PRN Reason: Shortness Of Breath/wheezing Clopidogrel Bisulfate (Clopidogrel 75 Mg Tab Ptom) 75 mg PO DAILY NALDO Last Admin: 04/26/21 08:38 Dose: 75 mg Documented by: Heparin Sodium (Porcine) (Heparin Sodium 5,000 Units/Ml Vial) 5,000 units SUBCUT 0400,1200,2000 [facility] Last Admin: 04/26/21 03:00 Dose: 5,000 units Documented by: Miscellaneous Information (Remove Patch) 0 ea TRDERM DAILY [facility] Last Admin: 04/26/21 08:38 Dose: 1 ea Documented by: Nicotine (Nicotine 14 Mg/24 Hr Patch) 14 mg TRDERM DAILY [facility] Last Admin: 04/26/21 08:37 Dose: 14 mg Documented by: Donepezil 5 Mg Tab * (*Ptom) 0 mg PO BEDTIME [facility] Last Admin: 04/25/21 21:45 Dose: 1 mg Documented by: Losartan Potassium [ Cozaar] 50 Mg Tab Ptom 0 mg PO DAILY [facility] Last Admin: 04/26/21 08:37 Dose: 50 mg Documented by: Ondansetron HCl (Ondansetron 4 Mg Tab.Dis) 4 mg PO Q4H PRN PRN Reason: nausea, able to take PO Oxycodone HCl (Oxycodone 5 Mg Tab) 5 mg PO Q4H PRN PRN Reason: Pain (moderate 4-6) Sodium Chloride (Sodium Chloride 0.9% 10 Ml Syringe) 10 ml FLUSH ASDIRECTED PRN PRN Reason: Keep Vein Open Last Admin: 04/25/21 11:17 Dose: 10 ml Documented by: Discontinued Medications Heparin Sodium (Porcine) (Heparin Sodium 5,000 Units/Ml Vial) 5,000 units SUBCUT Q8H [facility] Last Admin: 04/25/21 20:30 Dose: 5,000 units Documented by: Sodium Chloride (Normal Saline) 1,000 mls @ 999 mls/hr IV NOW STA Stop: 04/25/21 12:21 Last Admin: 04/25/21 11:27 Dose: 999 mls/hr Documented by: - Exam Quality Assessment: Denies: Supplemental Oxygen General: Reports: Alert, Oriented, Cooperative, No Acute Distress HEENT: Reports: Pupils Equal, Pupils Reactive, EOMI, Mucous Membr. Moist/[place] Neck: Reports: Supple, Trachea Midline Lungs: Reports: Clear to Auscultation, Normal Respiratory Effort Cardiovascular: Reports: Regular Rate, Regular Rhythm GI/Abdominal Exam: Normal Bowel Sounds, Soft, Non-Tender, No Distention (Male) Exam: Deferred Rectal (Males) Exam: Deferred Back Exam: Reports: Normal Inspection, Full Range of Motion Extremities: Normal Inspection, Normal Range of Motion, No Pedal Edema Skin: Reports: Warm, Dry, Intact Neurological: Reports: No New Focal Deficit, Normal Gait, Normal Speech Psy/Mental Status: Reports: Alert, Normal Affect, Normal Mood *Q Meaningful Use (DIS) - VTE *Q VTE Mechanical Contraindications *Q: At Risk for Falls
[2021-04-26] MEDS ORDERED: Clopidogrel 75 MG Tab **PTOM PO SCH (09:00)
[2021-04-26] MEDS ORDERED: LOSARTAN POTASSIUM 50 MG PO SCH (09:00)
== END 2021-04-26 10:27 | disposition home or self-care (01) ==
LOC: JD.ED 11:01 → JD.MS 17:34
PROVIDERS: ADMIT Internal Medicine; ATTEND Internal Medicine
DX: G91.2 (Idiopathic) normal pressure hydrocephalus (principal); R26.9 Unspecified abnormalities of gait and mobility; I25.10 Atherosclerotic heart disease of native coronary artery without angina pectoris; E78.00 Pure hypercholesterolemia, unspecified; I10 Essential (primary) hypertension; R55 Syncope and collapse; F17.200 Nicotine dependence, unspecified, uncomplicated; I73.9 Peripheral vascular disease, unspecified; Z79.899 Other long term (current) drug therapy; Z98.890 Other specified postprocedural states; Z20.822 Contact with and (suspected) exposure to COVID-19
CPT/HCPCS: 36415; 70450; 70551; 71046; 80053; 81001; 83735; 84484; 85025; 86140; 93005; 97161; A9270; J1644; J7030; U0002; 93010; 96372; 99217; 99218; 99285; 99285-25; G0378

== ENCOUNTER 2023-03-22 20:33 | Emergency (ER) | payer MEDICARE, OTHER ==
[2023-03-22 21:34] VITALS: BP 140/62; PULSE 71
== END 2023-03-22 21:36 | disposition home or self-care (01) ==
LOC: JD.ED 20:33
DX: Z71.1 Person with feared health complaint in whom no diagnosis is made (principal); I25.10 Atherosclerotic heart disease of native coronary artery without angina pectoris; I10 Essential (primary) hypertension; K21.9 Gastro-esophageal reflux disease without esophagitis; Z79.899 Other long term (current) drug therapy; Z79.02 Long term (current) use of antithrombotics/antiplatelets
CPT/HCPCS: 99285

== ENCOUNTER 2023-10-05 17:45 | Inpatient (IN) | payer MEDICARE, OTHER ==
[2023-10-05] MEDS ORDERED: Albuterol 6.7 GM Inhaler INH PRN (22:49)
[2023-10-06] MEDS ORDERED: Losartan 25 MG Tab PO SCH (09:00)
[2023-10-06] MEDS ORDERED: CLOPIDOGREL 75 MG PO SCH (09:00)
[2023-10-06] MEDS ORDERED: Gabapentin 100 MG Cap PO SCH (09:00)
[2023-10-06] MEDS: Pantoprazole 40 MG Tab.CR PO SCH (09:09)
[2023-10-06 11:17] LABS: BASOPHILS PERCENT AUTO 0.7 % (0.0-1.0); EOSINOPHILS ABSOLUTE AUTO 0.1 K/mm3 (0.0-0.4); EOSINOPHILS PERCENT AUTO 2.5 % (0.0-6.0); HEMATOCRIT 37.7 % (42.0-52.0); HEMOGLOBIN 12.8 gm/dl (14.0-18.0); IMMATURE GRAN ABSOLUTE AUTO 0.01 K/mm3 (0.00-0.05); IMMATURE GRAN PERCENT AUTO 0.2 % (0.0-0.4); LYMPHOCYTES ABSOLUTE AUTO 0.7 K/mm3 (1.0-4.8); LYMPHOCYTES PERCENT AUTO 16.4 % (24.0-44.0); MEAN CORPUSCULAR HEMOGLOBIN 32.6 pg (28.0-32.0); MEAN CORPUSCULAR VOLUME 95.9 fl (83.0-99.0); MEAN PLATELET VOLUME 8.9 fl (9.4-12.4); MONOCYTES ABSOLUTE AUTO 0.9 K/mm3 (0.0-0.8); MONOCYTES PERCENT AUTO 20.2 % (0.0-8.0); NEUTROPHILS ABSOLUTE AUTO 2.6 K/mm3 (1.8-7.7); PLATELET COUNT,PLT 194 K/mm3 (150-400); RED BLOOD CELL COUNT 3.93 M/mm3 (4.52-5.90)
[2023-10-06 11:35] LABS: A/G RATIO 0.8 (1-2); ALBUMIN 2.7 g/dl (3.4-5.0); ANION GAP 9.7 (5-15); BILIRUBIN TOTAL 0.3 mg/dL (0.2-1.0); BUN/CREATININE RATIO 16.7 (14-18); CALCIUM 8.3 mg/dL (8.5-10.1); CREATININE 1.5 mg/dL (0.7-1.3); EST CRCL DRUG DOSING (CG) 34.66 mL/min; MAGNESIUM 1.9 mg/dL (1.8-2.4); POTASSIUM,K 3.7 mEq/L (3.5-5.1); PROTEIN TOTAL,TP 5.9 g/dl (6.4-8.2)
[2023-10-06] MEDS: Losartan 25 MG Tab PO SCH (11:55)
[2023-10-06 11:56] LABS: SLIDE REVIEW ABNORMAL SMEAR
[2023-10-06] MEDS: Gabapentin 100 MG Cap PO SCH ×3 (11:56→21:56)
[2023-10-06] MEDS: Clopidogrel 75 MG Tab PO SCH (11:57)
[2023-10-06] MEDS: PRAVASTATIN 40 MG PO SCH (11:57)
[2023-10-06] MEDS: Enoxaparin 40 MG/0.4 ML Syringe SUBCUT SCH (11:58)
[2023-10-06] MEDS ORDERED: Pravastatin 20 MG Tab PO SCH (18:00)
[2023-10-06] MEDS ORDERED: Donepezil 10 MG Tab PO SCH (21:00)
[2023-10-06] MEDS: Donepezil 10 MG Tab PO SCH (21:56)
[2023-10-07 05:30] LABS: BASOPHILS PERCENT AUTO 0.3 % (0.0-1.0); EOSINOPHILS ABSOLUTE AUTO 0.2 K/mm3 (0.0-0.4); EOSINOPHILS PERCENT AUTO 2.6 % (0.0-6.0); HEMATOCRIT 38.1 % (42.0-52.0); HEMOGLOBIN 13.1 gm/dl (14.0-18.0); IMMATURE GRAN ABSOLUTE AUTO 0.02 K/mm3 (0.00-0.05); IMMATURE GRAN PERCENT AUTO 0.3 % (0.0-0.4); LYMPHOCYTES ABSOLUTE AUTO 0.8 K/mm3 (1.0-4.8); MEAN CORPUSCULAR HEMOGLOBIN 32.9 pg (28.0-32.0); MEAN CORPUSCULAR HGB CONC 34.4 g/dl (32.0-36.0); MEAN CORPUSCULAR VOLUME 95.7 fl (83.0-99.0); MEAN PLATELET VOLUME 9.4 fl (9.4-12.4); MONOCYTES ABSOLUTE AUTO 0.9 K/mm3 (0.0-0.8); MONOCYTES PERCENT AUTO 14.9 % (0.0-8.0); NEUTROPHILS PERCENT AUTO 68.9 % (41.0-71.0); PLATELET COUNT,PLT 192 K/mm3 (150-400); RED BLOOD CELL COUNT 3.98 M/mm3 (4.52-5.90); WHITE BLOOD CELL COUNT,WBC 5.83 K/mm3 (3.9-11.3)
[2023-10-07 05:51] LABS: ANION GAP 13.9 (5-15); BUN/CREATININE RATIO 16.9 (14-18); CALCIUM 8.4 mg/dL (8.5-10.1); CREATININE 1.6 mg/dL (0.7-1.3); EST CRCL DRUG DOSING (CG) 32.5 mL/min; POTASSIUM,K 3.9 mEq/L (3.5-5.1)
[2023-10-07] MEDS: Pantoprazole 40 MG Tab.CR PO SCH (09:00)
[2023-10-07] MEDS: Gabapentin 100 MG Cap PO SCH ×3 (09:00→21:11)
[2023-10-07] MEDS: Enoxaparin 40 MG/0.4 ML Syringe SUBCUT SCH (09:00)
[2023-10-07] MEDS: Losartan 25 MG Tab PO SCH (09:01)
[2023-10-07] MEDS: Clopidogrel 75 MG Tab PO SCH (09:02)
[2023-10-07] MEDS: PRAVASTATIN 40 MG PO SCH (09:03)
[2023-10-07] MEDS: Donepezil 10 MG Tab PO SCH (21:11)
[2023-10-08 05:29] LABS: BASOPHILS PERCENT AUTO 0.3 % (0.0-1.0); EOSINOPHILS ABSOLUTE AUTO 0.3 K/mm3 (0.0-0.4); EOSINOPHILS PERCENT AUTO 5.3 % (0.0-6.0); HEMOGLOBIN 13.1 gm/dl (14.0-18.0); IMMATURE GRAN ABSOLUTE AUTO 0.02 K/mm3 (0.00-0.05); IMMATURE GRAN PERCENT AUTO 0.3 % (0.0-0.4); LYMPHOCYTES ABSOLUTE AUTO 0.8 K/mm3 (1.0-4.8); LYMPHOCYTES PERCENT AUTO 13.6 % (24.0-44.0); MEAN CORPUSCULAR HEMOGLOBIN 32.7 pg (28.0-32.0); MEAN CORPUSCULAR HGB CONC 34.5 g/dl (32.0-36.0); MEAN CORPUSCULAR VOLUME 94.8 fl (83.0-99.0); MEAN PLATELET VOLUME 9.4 fl (9.4-12.4); MONOCYTES ABSOLUTE AUTO 0.8 K/mm3 (0.0-0.8); MONOCYTES PERCENT AUTO 12.7 % (0.0-8.0); NEUTROPHILS ABSOLUTE AUTO 4.1 K/mm3 (1.8-7.7); NEUTROPHILS PERCENT AUTO 67.8 % (41.0-71.0); PLATELET COUNT,PLT 194 K/mm3 (150-400); RED BLOOD CELL COUNT 4.01 M/mm3 (4.52-5.90); WHITE BLOOD CELL COUNT,WBC 6.05 K/mm3 (3.9-11.3)
[2023-10-08 05:52] LABS: A/G RATIO 0.8 (1-2); ALBUMIN 2.7 g/dl (3.4-5.0); ANION GAP 10.9 (5-15); BILIRUBIN TOTAL 0.4 mg/dL (0.2-1.0); BUN/CREATININE RATIO 17.3 (14-18); CALCIUM 8.2 mg/dL (8.5-10.1); CREATININE 1.5 mg/dL (0.7-1.3); EST CRCL DRUG DOSING (CG) 33.16 mL/min; POTASSIUM,K 3.9 mEq/L (3.5-5.1); PROTEIN TOTAL,TP 6.1 g/dl (6.4-8.2)
[2023-10-08] MEDS: Pantoprazole 40 MG Tab.CR PO SCH (08:31)
[2023-10-08] MEDS: Enoxaparin 40 MG/0.4 ML Syringe SUBCUT SCH (08:31)
[2023-10-08] MEDS: Gabapentin 100 MG Cap PO SCH ×3 (08:32→21:30)
[2023-10-08] MEDS: Clopidogrel 75 MG Tab PO SCH (08:34)
[2023-10-08] MEDS: Losartan 25 MG Tab PO SCH (08:34)
[2023-10-08] MEDS: PRAVASTATIN 40 MG PO SCH (08:34)
[2023-10-08] MEDS ORDERED: Magnesium Hydroxide 400 MG/5 ML Susp 30 ML Cup PO PRN (21:00)
[2023-10-08] MEDS: Sennosides/Docusate Sodium 50-8.6 MG Tab PO SCH (21:29)
[2023-10-08] MEDS: Donepezil 10 MG Tab PO SCH (21:30)
[2023-10-09] MEDS: Sennosides/Docusate Sodium 50-8.6 MG Tab PO SCH ×2 (08:23→20:22)
[2023-10-09] MEDS: Enoxaparin 40 MG/0.4 ML Syringe SUBCUT SCH (08:23)
[2023-10-09] MEDS: Pantoprazole 40 MG Tab.CR PO SCH (08:23)
[2023-10-09] MEDS: Losartan 25 MG Tab PO SCH (08:27)
[2023-10-09] MEDS: Gabapentin 100 MG Cap PO SCH ×3 (08:33→20:22)
[2023-10-09] MEDS: PRAVASTATIN 40 MG PO SCH (08:34)
[2023-10-09] MEDS: Clopidogrel 75 MG Tab PO SCH (08:34)
[2023-10-09 10:24] LABS: BASOPHILS PERCENT AUTO 0.2 % (0.0-1.0); EOSINOPHILS ABSOLUTE AUTO 0.2 K/mm3 (0.0-0.4); EOSINOPHILS PERCENT AUTO 2.6 % (0.0-6.0); HEMATOCRIT 41.4 % (42.0-52.0); HEMOGLOBIN 14.1 gm/dl (14.0-18.0); IMMATURE GRAN ABSOLUTE AUTO 0.01 K/mm3 (0.00-0.05); IMMATURE GRAN PERCENT AUTO 0.2 % (0.0-0.4); LYMPHOCYTES ABSOLUTE AUTO 0.7 K/mm3 (1.0-4.8); MEAN CORPUSCULAR HGB CONC 34.1 g/dl (32.0-36.0); MEAN CORPUSCULAR VOLUME 93.9 fl (83.0-99.0); MEAN PLATELET VOLUME 9.2 fl (9.4-12.4); MONOCYTES ABSOLUTE AUTO 0.7 K/mm3 (0.0-0.8); MONOCYTES PERCENT AUTO 10.6 % (0.0-8.0); NEUTROPHILS ABSOLUTE AUTO 4.7 K/mm3 (1.8-7.7); NEUTROPHILS PERCENT AUTO 75.4 % (41.0-71.0); PLATELET COUNT,PLT 214 K/mm3 (150-400); RED BLOOD CELL COUNT 4.41 M/mm3 (4.52-5.90); WHITE BLOOD CELL COUNT,WBC 6.21 K/mm3 (3.9-11.3)
[2023-10-09 10:40] LABS: BUN/CREATININE RATIO 19.3 (14-18); CALCIUM 8.7 mg/dL (8.5-10.1); CREATININE 1.5 mg/dL (0.7-1.3); EST CRCL DRUG DOSING (CG) 33.78 mL/min; MAGNESIUM 2.1 mg/dL (1.8-2.4)
[2023-10-09 10:45] LABS: CHOLESTEROL HDL 42 mg/dL (40-59); CHOLESTEROL LDL DIRECT 79 mg/dL (<100); CHOLESTEROL TOTAL 148 mg/dL (<200); TRIGLYCERIDES 111 mg/dL (<150)
[2023-10-09 11:12] LABS: FOLIC ACID 13.4 ng/mL (8.6-58.9)
[2023-10-09] MEDS ORDERED: Acetaminophen 325 MG Tab PO PRN (13:59)
[2023-10-09] MEDS ORDERED: Ondansetron 4 MG/2 ML SDV IV PRN (13:59)
[2023-10-09] MEDS: Donepezil 10 MG Tab PO SCH (20:22)
[2023-10-10 05:33] LABS: BASOPHILS PERCENT AUTO 0.2 % (0.0-1.0); EOSINOPHILS ABSOLUTE AUTO 0.1 K/mm3 (0.0-0.4); EOSINOPHILS PERCENT AUTO 1.7 % (0.0-6.0); HEMATOCRIT 38.5 % (42.0-52.0); HEMOGLOBIN 13.5 gm/dl (14.0-18.0); IMMATURE GRAN ABSOLUTE AUTO 0.02 K/mm3 (0.00-0.05); IMMATURE GRAN PERCENT AUTO 0.3 % (0.0-0.4); LYMPHOCYTES ABSOLUTE AUTO 0.9 K/mm3 (1.0-4.8); LYMPHOCYTES PERCENT AUTO 14.1 % (24.0-44.0); MEAN CORPUSCULAR HEMOGLOBIN 32.8 pg (28.0-32.0); MEAN CORPUSCULAR HGB CONC 35.1 g/dl (32.0-36.0); MEAN CORPUSCULAR VOLUME 93.7 fl (83.0-99.0); MEAN PLATELET VOLUME 9.5 fl (9.4-12.4); MONOCYTES ABSOLUTE AUTO 0.7 K/mm3 (0.0-0.8); MONOCYTES PERCENT AUTO 10.7 % (0.0-8.0); NEUTROPHILS ABSOLUTE AUTO 4.7 K/mm3 (1.8-7.7); PLATELET COUNT,PLT 201 K/mm3 (150-400); RED BLOOD CELL COUNT 4.11 M/mm3 (4.52-5.90); WHITE BLOOD CELL COUNT,WBC 6.46 K/mm3 (3.9-11.3)
[2023-10-10 05:34] LABS: ANION GAP 12.8 (5-15); BUN/CREATININE RATIO 17.7 (14-18); CALCIUM 8.4 mg/dL (8.5-10.1); CREATININE 1.3 mg/dL (0.7-1.3); EST CRCL DRUG DOSING (CG) 38.92 mL/min; MAGNESIUM 1.9 mg/dL (1.8-2.4); POTASSIUM,K 3.8 mEq/L (3.5-5.1)
[2023-10-10] MEDS ORDERED: Pravastatin 20 MG Tab PO SCH (09:25)
[2023-10-10] MEDS: PRAVASTATIN 40 MG PO SCH (09:36)
[2023-10-10] MEDS: Enoxaparin 40 MG/0.4 ML Syringe SUBCUT SCH (09:42)
[2023-10-10] MEDS: Sennosides/Docusate Sodium 50-8.6 MG Tab PO SCH ×2 (09:44→20:57)
[2023-10-10] MEDS: Clopidogrel 75 MG Tab PO SCH (09:44)
[2023-10-10] MEDS: Gabapentin 100 MG Cap PO SCH ×3 (09:44→20:57)
[2023-10-10] MEDS: Pravastatin 20 MG Tab PO SCH (09:44)
[2023-10-10] MEDS: Losartan 25 MG Tab PO SCH (09:44)
[2023-10-10] MEDS: Pantoprazole 40 MG Tab.CR PO SCH (09:45)
[2023-10-10] MEDS: Donepezil 10 MG Tab PO SCH (20:57)
[2023-10-11] MEDS: Enoxaparin 40 MG/0.4 ML Syringe SUBCUT SCH (08:34)
[2023-10-11] MEDS: Pravastatin 20 MG Tab PO SCH (08:35)
[2023-10-11] MEDS: Losartan 25 MG Tab PO SCH (08:35)
[2023-10-11] MEDS: Clopidogrel 75 MG Tab PO SCH (08:35)
[2023-10-11] MEDS: Gabapentin 100 MG Cap PO SCH ×3 (08:36→20:58)
[2023-10-11] MEDS: Sennosides/Docusate Sodium 50-8.6 MG Tab PO SCH ×2 (08:36→20:58)
[2023-10-11] MEDS: Pantoprazole 40 MG Tab.CR PO SCH (08:36)
[2023-10-11] MEDS: Donepezil 10 MG Tab PO SCH (21:01)
[2023-10-12] MEDS: Pravastatin 20 MG Tab PO SCH (08:29)
[2023-10-12] MEDS: Clopidogrel 75 MG Tab PO SCH (08:29)
[2023-10-12] MEDS: Gabapentin 100 MG Cap PO SCH ×3 (08:29→21:28)
[2023-10-12] MEDS: Losartan 25 MG Tab PO SCH (08:29)
[2023-10-12] MEDS: Pantoprazole 40 MG Tab.CR PO SCH (08:30)
[2023-10-12] MEDS: Sennosides/Docusate Sodium 50-8.6 MG Tab PO SCH ×2 (08:30→21:28)
[2023-10-12] MEDS: Enoxaparin 40 MG/0.4 ML Syringe SUBCUT SCH (08:30)
[2023-10-12] MEDS: Donepezil 10 MG Tab PO SCH (21:28)
[2023-10-13] MEDS: Pantoprazole 40 MG Tab.CR PO SCH (09:29)
[2023-10-13] MEDS: Pravastatin 20 MG Tab PO SCH (09:29)
[2023-10-13] MEDS: Sennosides/Docusate Sodium 50-8.6 MG Tab PO SCH ×2 (09:29→21:08)
[2023-10-13] MEDS: Losartan 25 MG Tab PO SCH (09:29)
[2023-10-13] MEDS: Clopidogrel 75 MG Tab PO SCH (09:29)
[2023-10-13] MEDS: Enoxaparin 40 MG/0.4 ML Syringe SUBCUT SCH (09:30)
[2023-10-13] MEDS: Gabapentin 100 MG Cap PO SCH ×3 (09:30→21:08)
[2023-10-13] MEDS: Donepezil 10 MG Tab PO SCH (21:08)
[2023-10-14 05:45] LABS: ANION GAP 11.9 (5-15); BUN/CREATININE RATIO 15.3 (14-18); CALCIUM 8.4 mg/dL (8.5-10.1); CREATININE 1.5 mg/dL (0.7-1.3); EST CRCL DRUG DOSING (CG) 31.31 mL/min; POTASSIUM,K 3.9 mEq/L (3.5-5.1)
[2023-10-14] MEDS: Enoxaparin 40 MG/0.4 ML Syringe SUBCUT SCH (08:29)
[2023-10-14] MEDS: Gabapentin 100 MG Cap PO SCH ×3 (08:30→21:13)
[2023-10-14] MEDS: Losartan 25 MG Tab PO SCH (08:30)
[2023-10-14] MEDS: Sennosides/Docusate Sodium 50-8.6 MG Tab PO SCH ×2 (08:30→21:13)
[2023-10-14] MEDS: Clopidogrel 75 MG Tab PO SCH (08:30)
[2023-10-14] MEDS: Pantoprazole 40 MG Tab.CR PO SCH (08:30)
[2023-10-14] MEDS: Pravastatin 20 MG Tab PO SCH (08:30)
[2023-10-14] MEDS: Donepezil 10 MG Tab PO SCH (21:13)
[2023-10-15 05:31] LABS: BASOPHILS PERCENT AUTO 0.4 % (0.0-1.0); EOSINOPHILS ABSOLUTE AUTO 0.2 K/mm3 (0.0-0.4); EOSINOPHILS PERCENT AUTO 1.9 % (0.0-6.0); HEMATOCRIT 39.8 % (42.0-52.0); HEMOGLOBIN 13.7 gm/dl (14.0-18.0); IMMATURE GRAN ABSOLUTE AUTO 0.03 K/mm3 (0.00-0.05); IMMATURE GRAN PERCENT AUTO 0.4 % (0.0-0.4); LYMPHOCYTES PERCENT AUTO 12.3 % (24.0-44.0); MEAN CORPUSCULAR HEMOGLOBIN 32.3 pg (28.0-32.0); MEAN CORPUSCULAR HGB CONC 34.4 g/dl (32.0-36.0); MEAN CORPUSCULAR VOLUME 93.9 fl (83.0-99.0); MEAN PLATELET VOLUME 9.2 fl (9.4-12.4); MONOCYTES ABSOLUTE AUTO 0.8 K/mm3 (0.0-0.8); MONOCYTES PERCENT AUTO 10.3 % (0.0-8.0); NEUTROPHILS ABSOLUTE AUTO 5.8 K/mm3 (1.8-7.7); NEUTROPHILS PERCENT AUTO 74.7 % (41.0-71.0); PLATELET COUNT,PLT 279 K/mm3 (150-400); RED BLOOD CELL COUNT 4.24 M/mm3 (4.52-5.90); WHITE BLOOD CELL COUNT,WBC 7.78 K/mm3 (3.9-11.3)
[2023-10-15 05:42] LABS: ANION GAP 10.1 (5-15); BUN/CREATININE RATIO 15.7 (14-18); CALCIUM 8.6 mg/dL (8.5-10.1); CREATININE 1.4 mg/dL (0.7-1.3); EST CRCL DRUG DOSING (CG) 35.96 mL/min; POTASSIUM,K 4.1 mEq/L (3.5-5.1)
[2023-10-15] MEDS: Enoxaparin 40 MG/0.4 ML Syringe SUBCUT SCH (08:43)
[2023-10-15] MEDS: Sennosides/Docusate Sodium 50-8.6 MG Tab PO SCH (08:44)
[2023-10-15] MEDS: Clopidogrel 75 MG Tab PO SCH (08:44)
[2023-10-15] MEDS: Losartan 25 MG Tab PO SCH (08:44)
[2023-10-15] MEDS: Pravastatin 20 MG Tab PO SCH (08:44)
[2023-10-15] MEDS: Gabapentin 100 MG Cap PO SCH (08:44)
[2023-10-15] MEDS: Pantoprazole 40 MG Tab.CR PO SCH (08:48)
[2023-10-15 09:35] VITALS: BP 123/53; PULSE 65
== END 2023-10-15 13:36 | DRG 57 ==
LOC: JD.ED 17:45 → JD.MS 20:12 → OBSVTOIN 20:12 → UNDOADMIN 20:12 → JD.MS 20:12
PROVIDERS: ADMIT Internal Medicine; ATTEND Internal Medicine
DX: R53.1 Weakness (principal); G91.2 (Idiopathic) normal pressure hydrocephalus; H53.122 Transient visual loss, left eye; R62.7 Adult failure to thrive; I25.10 Atherosclerotic heart disease of native coronary artery without angina pectoris; E78.00 Pure hypercholesterolemia, unspecified; I10 Essential (primary) hypertension; K21.9 Gastro-esophageal reflux disease without esophagitis; F17.210 Nicotine dependence, cigarettes, uncomplicated; R06.6 Hiccough; R26.9 Unspecified abnormalities of gait and mobility; M19.90 Unspecified osteoarthritis, unspecified site; I73.9 Peripheral vascular disease, unspecified; R29.6 Repeated falls; F03.A0 Unspecified dementia, mild, without behavioral disturbance, psychotic disturbance, mood disturbance, and anxiety; R13.10 Dysphagia, unspecified; Z68.21 Body mass index [BMI] 21.0-21.9, adult; Z86.73 Personal history of transient ischemic attack (TIA), and cerebral infarction without residual deficits; Z79.02 Long term (current) use of antithrombotics/antiplatelets; Z79.899 Other long term (current) drug therapy; Z95.5 Presence of coronary angioplasty implant and graft; Z85.828 Personal history of other malignant neoplasm of skin; Z95.828 Presence of other vascular implants and grafts; Z98.890 Other specified postprocedural states
CPT/HCPCS: 36415; 70450; 70450-26; 70551; 70551-26; 80048; 80053; 80061; 82607; 82746; 83735; 85025; 92610-GN; 93005; 96372; 97116-GP; 97162-GP; 97530-GP; 99285; A9270-GY; G0378; J1650; U0002

== ENCOUNTER 2024-06-25 16:33 | Emergency (ER) | payer MEDICARE, OTHER ==
[2024-06-25 19:06] LABS: CORONAVIRUS COVID-19 NAA NEGATIVE (NEGATIVE); INFLUENZA A NAA NEGATIVE (NEGATIVE); RESPIRATORY SYNCYTIAL VIR NAA NEGATIVE (NEGATIVE)
[2024-06-25 19:21] LABS: BASOPHILS PERCENT AUTO 0.2 % (0.0-1.0); EOSINOPHILS ABSOLUTE AUTO 0.2 K/mm3 (0.0-0.4); EOSINOPHILS PERCENT AUTO 1.9 % (0.0-6.0); HEMATOCRIT 37.7 % (42.0-52.0); HEMOGLOBIN 12.3 gm/dl (14.0-18.0); IMMATURE GRAN ABSOLUTE AUTO 0.03 K/mm3 (0.00-0.05); IMMATURE GRAN PERCENT AUTO 0.4 % (0.0-0.4); LYMPHOCYTES ABSOLUTE AUTO 1.1 K/mm3 (1.0-4.8); MEAN CORPUSCULAR HEMOGLOBIN 30.1 pg (28.0-32.0); MEAN CORPUSCULAR HGB CONC 32.6 g/dl (32.0-36.0); MEAN CORPUSCULAR VOLUME 92.4 fl (83.0-99.0); MEAN PLATELET VOLUME 9.5 fl (9.4-12.4); MONOCYTES ABSOLUTE AUTO 0.8 K/mm3 (0.0-0.8); MONOCYTES PERCENT AUTO 9.5 % (0.0-8.0); NEUTROPHILS ABSOLUTE AUTO 6.2 K/mm3 (1.8-7.7); PLATELET COUNT,PLT 242 K/mm3 (150-400); RED BLOOD CELL COUNT 4.08 M/mm3 (4.52-5.90); WHITE BLOOD CELL COUNT,WBC 8.25 K/mm3 (3.9-11.3)
[2024-06-25 19:42] LABS: A/G RATIO 0.9 (1-2); ALANINE AMINOTRANSFERASE,ALT 6 U/L (16-63); ALKALINE PHOSPHATASE 70 U/L (46-116); ASPARTATE AMNIOTRANSFERASE,AST 13 U/L (15-37); BILIRUBIN TOTAL 0.6 mg/dL (0.2-1.0); BLOOD UREA NITROGEN,BUN 22 mg/dL (7-18); BUN/CREATININE RATIO 12.2 (14-18); CALCIUM 8.6 mg/dL (8.5-10.1); CARBON DIOXIDE,CO2 26 mEq/L (21-32); CHLORIDE,CL 102 mEq/L (98-107); CREATININE 1.8 mg/dL (0.7-1.3); ESTIMATED GFR 37 mL/min (>60); GLUCOSE RANDOM 90 mg/dL (70-99); PROTEIN TOTAL,TP 6.5 g/dl (6.4-8.2); SODIUM,NA 138 mEq/L (136-145)
[2024-06-25 19:57] LABS: APPEARANCE,URINE CLOUDY (Clear); BILIRUBIN,URINE 1+ (Negative); COLOR,URINE RED (Yellow); GLUCOSE,URINE NEGATIVE (Negative); KETONES,URINE TRACE (Negative); LEUKOCYTE ESTERASE,URINE NEGATIVE (Negative); NITRITE,URINE NEGATIVE (Negative); OCCULT BLOOD,URINE 3+ (Negative); PROTEIN,URINE 2+ (Negative)
[2024-06-25 20:11] LABS: BACTERIA,URINE RARE /hpf (FEW); EPITHELIAL CELLS,URINE NOT SEEN /hpf (0-5); RBC,URINE TOO NUMEROUS TO CNT /hpf (0-5); WBC,URINE 0-5 /hpf (0-5)
[2024-06-25 20:12] LABS: HYALINE CASTS,URINE 0-5 /lpf (0-5); MUCUS,URINE NOT SEEN /hpf (FEW)
[2024-06-25 22:45] VITALS: BP 130/85; PULSE 80
== END 2024-06-25 22:46 | disposition home or self-care (01) ==
LOC: JD.ED 16:33
DX: R53.1 Weakness (principal); R31.0 Gross hematuria; I25.10 Atherosclerotic heart disease of native coronary artery without angina pectoris; I10 Essential (primary) hypertension; E78.00 Pure hypercholesterolemia, unspecified; J44.9 Chronic obstructive pulmonary disease, unspecified; K21.9 Gastro-esophageal reflux disease without esophagitis; Z95.5 Presence of coronary angioplasty implant and graft; Z86.73 Personal history of transient ischemic attack (TIA), and cerebral infarction without residual deficits; Z79.02 Long term (current) use of antithrombotics/antiplatelets; Z79.899 Other long term (current) drug therapy
CPT/HCPCS: 0241U; 36415; 70450; 71045; 80053; 81001; 83605; 85025; 99285; C1758; 99284